=== PATIENT | female | born 1960 | race Caucasian/White ===

== ENCOUNTER 2016-07-08 06:20 | Inpatient (IN) | payer BC ==
[2016-07-08] VITALS (8 sets, daily range): BP systolic 90–157; BP diastolic 49–86
[~2016-07-08] VITALS: Ht 154.9 cm; Wt 44.5 kg
[~2016-07-08 06:20] MED LIST: AMOXICILLIN500 MG PO; ATIVAN0.5 MG PO; ATIVAN1 MG OR; BUSPAR10 MG PO; CIPRO250 MG OR; CIPROFLOXACN500 MG PO; CLONIDINE0.1 MG OR; CLONIDINE0.1 MG PO; CREON24000 UNT PO; DILAUDID2 MG OR; ENALAPRIL10 MG OR; FLUOXETINE20 M1 PO; K-TAB20 MEQ PO; KLOR-CON 1010 MEQ PO; KLOR-CON M2020 MEQ PO; LIBRIUM25 MG PO; LIPITOR40 MG PO; LISINOP/HCTZ1 TA1 PO; LISINOPRIL10 MG PO; LISINOPRIL20 MG PO; LORAZEPAM0.5 MG PO; LORTAB 1010 MG PO; LORTAB 5 OR; LORTAB 5/3255 MG PO; LORTAB 7.5 OR; LOVASTATIN40 M1 PO; MEDDOSEPAK OR; METOPROL TAR25 MG PO; METOPROL TAR50 MG PO; METRONIDAZOL500 MG PO; NAPROXEN250 MG PO; OMEPRAZOLE10 MG OR; ONDANSETRON HCL4 MG PO; PEPCID20 MG PO; PROCARDIA XL60 MG PO; PROTONIX40 MG OR; PROZAC10 MG PO; TOPROL XL100 MG OR; TORADOL PO; TRAZODONE50 MG PO; TRICOR48 MG PO; VANCOMYCIN750 MG IV; XANAX0.25 MG PO; ZOLOFT50 MG PO; [UNRECOGNIZED DRUG - REMARK] PO
[2016-07-08] MEDS ORDERED: ANASTROZOLE1 MG PO (06:46)
[2016-07-08 07:51] LABS: HEMOGLOBIN 10.9 g/dl (12.0-16.0); IMMATURE GRANULOCYTES 0.3 % (0.0-1.0); MEAN CELL VOLUME 99.4 fL CALC (80.0-100.0); MEAN CORPUSCULAR HGB 33.9 pG CALC (26.0-32.0); MEAN CORPUSCULAR HGB CONC 34.1 g/L CALC (32.0-36.0); NEUT# 4.25 thou/uL (2.00-7.15); RED BLOOD COUNT 3.22 mill/uL (4.20-5.60); RED CELL DISTRI WIDTH 14.1 % (11.5-15.5)
[2016-07-08 07:51] LABS: ALBUMIN 2.2 g/dL (3.2-5.0); ALKALINE PHOSPHATASE 52 u/l (38-126); ANION GAP 15 (6-22 (CALC)); BILIRUBIN, TOTAL 0.2 mg/dL (0.0-1.4); BUN 8 mg/dL (7-17); BUN/CREATININE RATIO 13 (12-20 (CALC)); CALCIUM 8.1 mg/dL (8.4-10.2); CARBON DIOXIDE 15 mmol/l (22-30); CHLORIDE 110 mmol/l (95-108); CREATININE 0.6 mg/dL (0.5-1.0); GFR > 60 ML/MIN (>=60 (CALC)); GFR FOR AFR.AMER. > 60 ML/MIN (>=60 (CALC)); GLUCOSE 71 mg/dL (65-105); POTASSIUM 4.1 mmol/l (3.5-5.1); SGOT/AST 11 u/l (14-36); SGPT/ALT 22 u/l (9-52); SODIUM 136 mmol/l (137-146); TOTAL PROTEIN 4.1 g/dL (6.3-8.2)
[2016-07-08 07:53] LABS: ACT PARTIAL THROMBO TIME 25.8 SECONDS (20.0-32.5); PROTHROMBIN TIME 10.8 SECONDS (9.0-12.5)
[2016-07-09] VITALS (8 sets, daily range): BP systolic 94–155; BP diastolic 55–85
[2016-07-09 06:10] LABS: HEMATOCRIT 27.5 % (37.0-47.0); HEMOGLOBIN 9.1 g/dl (12.0-16.0); IMMATURE GRANULOCYTES 0.2 % (0.0-1.0); MEAN CELL VOLUME 102.2 fL CALC (80.0-100.0); MEAN CORPUSCULAR HGB 33.8 pG CALC (26.0-32.0); MEAN CORPUSCULAR HGB CONC 33.1 g/L CALC (32.0-36.0); NEUT# 3.64 thou/uL (2.00-7.15); RED BLOOD COUNT 2.69 mill/uL (4.20-5.60); RED CELL DISTRI WIDTH 14.1 % (11.5-15.5)
[2016-07-09 06:28] LABS: ANION GAP 11 (6-22 (CALC)); BUN 10 mg/dL (7-17); BUN/CREATININE RATIO 10 (12-20 (CALC)); CALCIUM 8.2 mg/dL (8.4-10.2); CARBON DIOXIDE 21 mmol/l (22-30); CHLORIDE 109 mmol/l (95-108); GFR 58 ML/MIN (>=60 (CALC)); GFR FOR AFR.AMER. > 60 ML/MIN (>=60 (CALC)); GLUCOSE 77 mg/dL (65-105); POTASSIUM 4.2 mmol/l (3.5-5.1); SODIUM 136 mmol/l (137-146)
[2016-07-10] VITALS: BP 134/82
[2016-07-10 03:20] VITALS: BP 163/83
[2016-07-10 05:13] LABS: ANION GAP 11 (6-22 (CALC)); BUN 7 mg/dL (7-17); BUN/CREATININE RATIO 8 (12-20 (CALC)); CALCIUM 8.1 mg/dL (8.4-10.2); CARBON DIOXIDE 20 mmol/l (22-30); CHLORIDE 111 mmol/l (95-108); CREATININE 0.9 mg/dL (0.5-1.0); GFR > 60 ML/MIN (>=60 (CALC)); GFR FOR AFR.AMER. > 60 ML/MIN (>=60 (CALC)); GLUCOSE 78 mg/dL (65-105); POTASSIUM 3.7 mmol/l (3.5-5.1); SODIUM 139 mmol/l (137-146)
[2016-07-10 05:29] LABS: HEMOGLOBIN 8.9 g/dl (12.0-16.0); MEAN CELL VOLUME 99.2 fL CALC (80.0-100.0); MEAN CORPUSCULAR HGB CONC 34.2 g/L CALC (32.0-36.0); RED BLOOD COUNT 2.62 mill/uL (4.20-5.60); RED CELL DISTRI WIDTH 13.5 % (11.5-15.5)
[2016-07-10 16:54] VITALS: BP 149/81
[2016-07-10 19:30] VITALS: BP 187/83
[2016-07-10 21:15] VITALS: BP 152/89
[2016-07-10 23:45] VITALS: BP 150/85
[2016-07-11 04:56] VITALS: BP 130/62
[2016-07-11 05:49] LABS: HEMATOCRIT 25.6 % (37.0-47.0); HEMOGLOBIN 8.8 g/dl (12.0-16.0); IMMATURE GRANULOCYTES 0.3 % (0.0-1.0); MEAN CELL VOLUME 98.1 fL CALC (80.0-100.0); MEAN CORPUSCULAR HGB 33.7 pG CALC (26.0-32.0); MEAN CORPUSCULAR HGB CONC 34.4 g/L CALC (32.0-36.0); NEUT# 4.39 thou/uL (2.00-7.15); RED BLOOD COUNT 2.61 mill/uL (4.20-5.60); RED CELL DISTRI WIDTH 13.3 % (11.5-15.5)
[2016-07-11 06:08] LABS: ANION GAP 15 (6-22 (CALC)); BUN 6 mg/dL (7-17); BUN/CREATININE RATIO 7 (12-20 (CALC)); CALCIUM 8.2 mg/dL (8.4-10.2); CARBON DIOXIDE 18 mmol/l (22-30); CHLORIDE 111 mmol/l (95-108); CREATININE 0.8 mg/dL (0.5-1.0); GFR > 60 ML/MIN (>=60 (CALC)); GFR FOR AFR.AMER. > 60 ML/MIN (>=60 (CALC)); GLUCOSE 60 mg/dL (65-105); POTASSIUM 3.7 mmol/l (3.5-5.1); SODIUM 141 mmol/l (137-146)
[2016-07-11 08:04] VITALS: BP 144/74
[2016-07-11 16:14] VITALS: BP 113/67
[2016-07-11 16:21] VITALS: BP 146/78
[2016-07-11 20:24] VITALS: BP 158/84
[2016-07-12 00:27] VITALS: BP 152/73
[2016-07-12 04:40] VITALS: BP 131/72
[2016-07-12 05:50] LABS: HEMATOCRIT 24.1 % (37.0-47.0); HEMOGLOBIN 8.3 g/dl (12.0-16.0); IMMATURE GRANULOCYTES 0.2 % (0.0-1.0); MEAN CELL VOLUME 98.4 fL CALC (80.0-100.0); MEAN CORPUSCULAR HGB 33.9 pG CALC (26.0-32.0); MEAN CORPUSCULAR HGB CONC 34.4 g/L CALC (32.0-36.0); NEUT# 2.8 thou/uL (2.00-7.15); RED BLOOD COUNT 2.45 mill/uL (4.20-5.60); RED CELL DISTRI WIDTH 13.2 % (11.5-15.5)
[2016-07-12 06:09] LABS: ANION GAP 17 (6-22 (CALC)); BUN 5 mg/dL (7-17); BUN/CREATININE RATIO 7 (12-20 (CALC)); CALCIUM 8.3 mg/dL (8.4-10.2); CARBON DIOXIDE 17 mmol/l (22-30); CHLORIDE 111 mmol/l (95-108); CREATININE 0.8 mg/dL (0.5-1.0); GFR > 60 ML/MIN (>=60 (CALC)); GFR FOR AFR.AMER. > 60 ML/MIN (>=60 (CALC)); GLUCOSE 40 mg/dL (65-105); POTASSIUM 3.4 mmol/l (3.5-5.1); SODIUM 141 mmol/l (137-146)
[2016-07-12 09:09] VITALS: BP 176/88
[2016-07-12 16:25] VITALS: BP 179/92
[2016-07-12 18:54] VITALS: BP 162/94
[2016-07-12 23:22] VITALS: BP 144/79
[2016-07-13 05:05] LABS: HEMATOCRIT 26.6 % (37.0-47.0); HEMOGLOBIN 9.5 g/dl (12.0-16.0); IMMATURE GRANULOCYTES 0.2 % (0.0-1.0); MEAN CORPUSCULAR HGB 34.3 pG CALC (26.0-32.0); MEAN CORPUSCULAR HGB CONC 35.7 g/L CALC (32.0-36.0); NEUT# 2.19 thou/uL (2.00-7.15); RED BLOOD COUNT 2.77 mill/uL (4.20-5.60); RED CELL DISTRI WIDTH 13.1 % (11.5-15.5)
[2016-07-13 05:10] VITALS: BP 156/79; BP 98/61
[2016-07-13 05:36] LABS: ANION GAP 12 (6-22 (CALC)); BUN 5 mg/dL (7-17); BUN/CREATININE RATIO 7 (12-20 (CALC)); CALCIUM 8.8 mg/dL (8.4-10.2); CARBON DIOXIDE 25 mmol/l (22-30); CHLORIDE 109 mmol/l (95-108); CREATININE 0.8 mg/dL (0.5-1.0); GFR > 60 ML/MIN (>=60 (CALC)); GFR FOR AFR.AMER. > 60 ML/MIN (>=60 (CALC)); GLUCOSE 80 mg/dL (65-105); POTASSIUM 3.6 mmol/l (3.5-5.1); SODIUM 143 mmol/l (137-146)
[2016-07-13 07:40] VITALS: BP 200/93
[2016-07-13 15:16] VITALS: BP 175/96
[2016-07-13] MEDS ORDERED: LORTAB 10-325 M1 TAB PO (16:21)
[2016-07-13 20:34] VITALS: BP 153/85
[2016-07-14 04:35] VITALS: BP 145/88
[2016-07-14 09:19] VITALS: BP 96/52
[2016-07-14 12:08] VITALS: BP 98/60
[2016-07-14 15:05] VITALS: BP 117/70
[2016-07-14] MEDS ORDERED: COLACE100 MG PO (19:11)
[2016-07-14] MEDS ORDERED: MIRALAX3350 NF PO (19:11)
== END 2016-07-14 19:30 | disposition home or self-care (01) | DRG 330 ==
LOC: ENPENDDIS → ORM 06:20 → ICU 10:48 → MS2 07-09 13:45
PROVIDERS: Internal Medicine; ADMIT Surgery; ATTEND Surgery
PROC: 0DBF0ZZ Excision of Right Large Intestine, Open Approach (ICD-10-PCS; principal; 2016-07-08)
DX: C7A.02 Malignant carcinoid tumors of the appendix, large intestine, and rectum (principal); K86.1 Other chronic pancreatitis; I10 Essential (primary) hypertension; J44.9 Chronic obstructive pulmonary disease, unspecified; F41.9 Anxiety disorder, unspecified; G47.00 Insomnia, unspecified; F17.210 Nicotine dependence, cigarettes, uncomplicated; Z96.89 Presence of other specified functional implants; Z85.3 Personal history of malignant neoplasm of breast; Z90.13 Acquired absence of bilateral breasts and nipples
CPT/HCPCS: J2710

== ENCOUNTER 2016-08-28 19:27 | Emergency (ER) | payer BC ==
[~2016-08-28] VITALS: Ht 154.9 cm; Wt 38.0 kg
[~2016-08-28 19:27] MED LIST changes: +ANASTROZOLE1 MG PO; +COLACE100 MG PO; +LORTAB 10-325 M1 TAB PO; +MIRALAX3350 NF PO
[2016-08-28 20:19] LABS: HEMATOCRIT 37.3 % (37.0-47.0); HEMOGLOBIN 12.4 g/dl (12.0-16.0); IMMATURE GRANULOCYTES 0.3 % (0.0-1.0); MEAN CELL VOLUME 98.4 fL CALC (80.0-100.0); MEAN CORPUSCULAR HGB 32.7 pG CALC (26.0-32.0); MEAN CORPUSCULAR HGB CONC 33.2 g/L CALC (32.0-36.0); NEUT# 5.48 thou/uL (2.00-7.15); RED BLOOD COUNT 3.79 mill/uL (4.20-5.60); RED CELL DISTRI WIDTH 12.5 % (11.5-15.5)
[2016-08-28 20:51] LABS: ALBUMIN 4.2 g/dL (3.2-5.0); ALKALINE PHOSPHATASE 115 u/l (38-126); AMYLASE 300 u/l (30-110); ANION GAP 15 (6-22 (CALC)); BILIRUBIN, TOTAL 0.4 mg/dL (0.0-1.4); BUN 9 mg/dL (7-17); BUN/CREATININE RATIO 12 (12-20 (CALC)); CALCIUM 9.8 mg/dL (8.4-10.2); CARBON DIOXIDE 27 mmol/l (22-30); CHLORIDE 101 mmol/l (95-108); CREATININE 0.8 mg/dL (0.5-1.0); GFR > 60 ML/MIN (>=60 (CALC)); GFR FOR AFR.AMER. > 60 ML/MIN (>=60 (CALC)); GLUCOSE 97 mg/dL (65-105); LIPASE 1944 u/l (23-300); POTASSIUM 3.4 mmol/l (3.5-5.1); SGOT/AST 24 u/l (14-36); SGPT/ALT 20 u/l (9-52); SODIUM 139 mmol/l (137-146); TOTAL PROTEIN 8.3 g/dL (6.3-8.2)
[2016-08-28 21:03] LABS: MYOGLOBIN 27 ng/mL (0 - 62)
[2016-08-28 23:35] VITALS: BP 174/82
== END 2016-08-28 23:37 | disposition short-term general hospital (02) | DRG 440 ==
LOC: ED 19:27 → ED-I 21:00 → ED 23:37
PROVIDERS: Emergency Medicine
DX: K85.90 Acute pancreatitis without necrosis or infection, unspecified (principal); I10 Essential (primary) hypertension; E78.00 Pure hypercholesterolemia, unspecified; F41.9 Anxiety disorder, unspecified; F17.210 Nicotine dependence, cigarettes, uncomplicated; Z85.3 Personal history of malignant neoplasm of breast; Z85.038 Personal history of other malignant neoplasm of large intestine; Z98.890 Other specified postprocedural states

== ENCOUNTER 2016-10-06 19:05 | Emergency (ER) | payer BC ==
[~2016-10-06] VITALS: Ht 154.9 cm; Wt 39.6 kg
[2016-10-06 20:00] VITALS: BP 189/94
== END 2016-10-06 20:08 | disposition home or self-care (01) | DRG 440 ==
LOC: ED 19:05
DX: K86.1 Other chronic pancreatitis (principal); I10 Essential (primary) hypertension; E78.00 Pure hypercholesterolemia, unspecified; F41.9 Anxiety disorder, unspecified; F17.210 Nicotine dependence, cigarettes, uncomplicated; F10.21 Alcohol dependence, in remission; Z85.3 Personal history of malignant neoplasm of breast; Z85.038 Personal history of other malignant neoplasm of large intestine

== ENCOUNTER 2017-03-20 12:03 | Emergency (ER) | payer BC ==
[~2017-03-20] VITALS: Ht 154.9 cm; Wt 43.0 kg
[2017-03-20 13:49] LABS: HEMATOCRIT 41.3 % (37.0-47.0); HEMOGLOBIN 14.4 g/dl (12.0-16.0); IMMATURE GRANULOCYTES 0.2 % (0.0-1.0); MEAN CELL VOLUME 91.4 fL CALC (80.0-100.0); MEAN CORPUSCULAR HGB 31.9 pG CALC (26.0-32.0); MEAN CORPUSCULAR HGB CONC 34.9 g/L CALC (32.0-36.0); NEUT# 7.32 thou/uL (2.00-7.15); RED BLOOD COUNT 4.52 mill/uL (4.20-5.60); RED CELL DISTRI WIDTH 12.5 % (11.5-15.5)
[2017-03-20 14:00] LABS: ALBUMIN 4.5 g/dL (3.2-5.0); ALKALINE PHOSPHATASE 152 u/l (38-126); ANION GAP 18 (6-22 (CALC)); BILIRUBIN, TOTAL 0.7 mg/dL (0.0-1.4); BUN 10 mg/dL (7-17); BUN/CREATININE RATIO 13 (12-20 (CALC)); CALCIUM 10.1 mg/dL (8.4-10.2); CARBON DIOXIDE 23 mmol/l (22-30); CHLORIDE 105 mmol/l (95-108); CREATININE 0.8 mg/dL (0.5-1.0); GFR > 60 ML/MIN (>=60 (CALC)); GFR FOR AFR.AMER. > 60 ML/MIN (>=60 (CALC)); GLUCOSE 119 mg/dL (65-105); LIPASE 503 u/l (23-300); POTASSIUM 3.9 mmol/l (3.5-5.1); SGOT/AST 21 u/l (14-36); SGPT/ALT 31 u/l (9-52); SODIUM 142 mmol/l (137-146); TOTAL PROTEIN 7.4 g/dL (6.3-8.2)
[2017-03-20 15:46] LABS: URINE BILIRUBIN - DIPSTICK NEGATIVE (NEGATIVE); URINE BLOOD DIPSTICK TRACE-LYSED (NEGATIVE); URINE COLOR YELLOW; URINE GLUCOSE - DIPSTICK NEGATIVE (NEGATIVE); URINE KETONE 15 mg/dL (NEGATIVE); URINE LEUK ESTERASE NEGATIVE (NEGATIVE); URINE NITRITE - DIPSTICK NEGATIVE (Negative); URINE PROTEIN - DIPSTICK TRACE mg/dL (NEG-TRACE); URINE UROBILINOGEN - DIPSTICK 0.2 E.U./dL (0.2)
[2017-03-20 15:47] LABS: URINE CLARITY CLEAR
[2017-03-20] MEDS ORDERED: ZOFRAN4 M1 PO (19:05)
[2017-03-20 19:25] VITALS: BP 187/91
== END 2017-03-20 19:25 | disposition home or self-care (01) | DRG 392 ==
LOC: ED 12:03
PROVIDERS: Family Medicine
DX: R10.13 Epigastric pain (principal); E78.00 Pure hypercholesterolemia, unspecified; R11.2 Nausea with vomiting, unspecified; I10 Essential (primary) hypertension; F41.9 Anxiety disorder, unspecified; F17.210 Nicotine dependence, cigarettes, uncomplicated; Z85.038 Personal history of other malignant neoplasm of large intestine; Z85.3 Personal history of malignant neoplasm of breast; Z96.89 Presence of other specified functional implants

== ENCOUNTER 2017-04-12 11:25 | Emergency (ER) | payer BC ==
[~2017-04-12] VITALS: Ht 154.9 cm; Wt 45.0 kg
[~2017-04-12 11:25] MED LIST changes: +ZOFRAN4 M1 PO
[2017-04-12 12:14] LABS: HEMATOCRIT 35.6 % (37.0-47.0); HEMOGLOBIN 12.8 g/dl (12.0-16.0); IMMATURE GRANULOCYTES 0.4 % (0.0-1.0); MEAN CELL VOLUME 88.1 fL CALC (80.0-100.0); MEAN CORPUSCULAR HGB 31.7 pG CALC (26.0-32.0); NEUT# 8.41 thou/uL (2.00-7.15); RED BLOOD COUNT 4.04 mill/uL (4.20-5.60); RED CELL DISTRI WIDTH 12.7 % (11.5-15.5)
[2017-04-12 13:37] LABS: ALBUMIN 3.1 g/dL (3.2-5.0); ALKALINE PHOSPHATASE 81 u/l (38-126); AMYLASE 138 u/l (30-110); BILIRUBIN, TOTAL 0.7 mg/dL (0.0-1.4); CALCIUM 6.7 mg/dL (8.4-10.2); CHLORIDE 81 mmol/l (95-108); GLUCOSE 137 mg/dL (65-105); LIPASE 403 u/l (23-300); SGOT/AST 19 u/l (14-36); SGPT/ALT 24 u/l (9-52); SODIUM 134 mmol/l (137-146); TOTAL PROTEIN 5.7 g/dL (6.3-8.2)
[2017-04-12 13:46] LABS: ANION GAP 53 (6-22 (CALC)); CARBON DIOXIDE 7 mmol/l (22-30); POTASSIUM 7.2 mmol/l (3.5-5.1)
[2017-04-12 14:17] LABS: MAGNESIUM 2.3 mg/dL (1.6-2.3)
[2017-04-12 14:18] LABS: MYOGLOBIN 1431 ng/mL (0 - 62)
[2017-04-12] MEDS ORDERED: MINOCIN100 MG PO (14:36)
[2017-04-12] MEDS ORDERED: OXYCODONE HCL15 MG PO (14:38)
[2017-04-12] MEDS ORDERED: MORPHINE SUL30 M3 PO (14:39)
[2017-04-12 14:41] LABS: URINE BILIRUBIN - DIPSTICK NEGATIVE (NEGATIVE); URINE BLOOD DIPSTICK MODERATE (NEGATIVE); URINE COLOR YELLOW; URINE GLUCOSE - DIPSTICK NEGATIVE (NEGATIVE); URINE KETONE NEGATIVE (NEGATIVE); URINE LEUK ESTERASE NEGATIVE (NEGATIVE); URINE NITRITE - DIPSTICK NEGATIVE (Negative); URINE PROTEIN - DIPSTICK NEGATIVE (NEG-TRACE); URINE SPECIFIC GRAVITY 1.025; URINE UROBILINOGEN - DIPSTICK 0.2 E.U./dL (0.2)
[2017-04-12 14:43] LABS: URINE CLARITY SL CLOUDY
[2017-04-12 14:50] LABS: URINE AMORPH SEDIMENT MANY hpf (NONE-FEW); URINE SQUAMOUS EPITHELIAL CELL FEW EPI/hpf (0-FEW); URINE WBC 0-2 WBC/hpf (0-5)
[2017-04-12 16:20] VITALS: BP 113/60
== END 2017-04-12 15:50 | DRG 684 ==
LOC: ED 11:25
PROVIDERS: Emergency Medicine
PROC: 0T9B70Z Drainage of Bladder with Drainage Device, Via Natural or Artificial Opening (ICD-10-PCS; principal; 2017-04-12)
DX: N17.9 Acute kidney failure, unspecified (principal); E83.51 Hypocalcemia; E87.5 Hyperkalemia; E78.00 Pure hypercholesterolemia, unspecified; I10 Essential (primary) hypertension; F41.9 Anxiety disorder, unspecified; F17.210 Nicotine dependence, cigarettes, uncomplicated; Z90.13 Acquired absence of bilateral breasts and nipples; Z85.038 Personal history of other malignant neoplasm of large intestine; Z85.3 Personal history of malignant neoplasm of breast; Z92.21 Personal history of antineoplastic chemotherapy

== ENCOUNTER 2017-05-09 12:39 | Observation (INO) | payer BC ==
[~2017-05-09] VITALS: Ht 154.9 cm; Wt 45.0 kg
[~2017-05-09 12:39] MED LIST changes: +MINOCIN100 MG PO; +MORPHINE SUL30 M3 PO; +OXYCODONE HCL15 MG PO
--- NOTE | 2017-05-09 12:51 | NUR ---
PT TO ROOM FOR EXAM
[2017-05-09 13:23] LABS: HEMATOCRIT 30.4 % (37.0-47.0); HEMOGLOBIN 9.8 g/dl (12.0-16.0); IMMATURE GRANULOCYTES 0.7 % (0.0-1.0); MEAN CORPUSCULAR HGB 32.6 pG CALC (26.0-32.0); MEAN CORPUSCULAR HGB CONC 32.2 g/L CALC (32.0-36.0); NEUT# 6.64 thou/uL (2.00-7.15); RED BLOOD COUNT 3.01 mill/uL (4.20-5.60); RED CELL DISTRI WIDTH 17.1 % (11.5-15.5)
--- NOTE | 2017-05-09 13:35 | NUR ---
PT NOW WITH IV ESTABLISHED, BLOOD DRAWN, MEDS PROVIDED ORDERED. PT RESTS IN THE STRETCHER, LIGHTS DIMMED, AT BEDSIDE.
[2017-05-09 13:36] LABS: ALBUMIN 3.8 g/dL (3.2-5.0); ALKALINE PHOSPHATASE 144 u/l (38-126); AMYLASE 102 u/l (30-110); ANION GAP 18 (6-22 (CALC)); BILIRUBIN, TOTAL 0.3 mg/dL (0.0-1.4); BUN 6 mg/dL (7-17); BUN/CREATININE RATIO 6 (12-20 (CALC)); CALCIUM 9.9 mg/dL (8.4-10.2); CARBON DIOXIDE 20 mmol/l (22-30); CHLORIDE 111 mmol/l (95-108); CREATININE 1.1 mg/dL (0.5-1.0); GFR 52 ML/MIN (>=60 (CALC)); GFR FOR AFR.AMER. > 60 ML/MIN (>=60 (CALC)); GLUCOSE 123 mg/dL (65-105); LIPASE 329 u/l (23-300); POTASSIUM 3.5 mmol/l (3.5-5.1); SGOT/AST 22 u/l (14-36); SGPT/ALT 17 u/l (9-52); SODIUM 146 mmol/l (137-146); TOTAL PROTEIN 6.5 g/dL (6.3-8.2)
[2017-05-09] MEDS ORDERED: IMODIUM2 MG PO (13:56)
[2017-05-09] MEDS ORDERED: ZOFRAN ODT4 MG PO (13:56)
--- NOTE | 2017-05-09 14:00 | NUR ---
PT WITH ACTIVE VOMITING IN ROOM, EDP AWARE, DIFFERENT MED ORDERED.
--- NOTE | 2017-05-09 14:25 | NUR ---
PT STILL VOMITING, EDP AWARE.
--- NOTE | 2017-05-09 15:38 | NUR ---
PT AMBULATORY TO BR, UNABLE TO PROVIDE URINE PER DROPPED CUP.
[2017-05-09] MEDS ORDERED: AMLODIPINE BESYL5 MG PO (16:34)
[2017-05-09] MEDS ORDERED: CREON24000 UNT PO (16:35)
[2017-05-09] MEDS ORDERED: DRONABINOL5 MG PO (16:36)
[2017-05-09] MEDS ORDERED: K-DUR/KLOR-CON20 MEQ PO (16:37)
--- NOTE | 2017-05-09 16:44 | NUR ---
PT ARRIVED FROM ER VIA STRETCHER ACCOMPANIED BY STAFF. IV SITE IS FREE FROM REDNESS OR EDEMA. CONTINUE TO OBSERVE AND MONITOR.
--- NOTE | 2017-05-09 16:50 | NUR ---
PT TAKEN TO ROOM 262 WITHOUT INCIDENT, REPORT WAS TO GILBERT SINCLAIR.
[2017-05-09 17:00] VITALS: BP 192/105
--- NOTE | 2017-05-09 17:15 | NUR ---
ASSESSMENT IS COMPLETED: IV SITE IS FREE FROM REDNESS OR EDEMA. INQUIRED ABOUT PAIN MEDICATION. CALLED MELISSA ADAMS RE: BP DUE TO BEING HIGH. NEW ORDERS GIVEN. LAB ORDERS GIVEN . CONTINUE TO OSBERVE AND MONITOR.
[2017-05-09 18:08] VITALS: BP 187/106
--- NOTE | 2017-05-09 18:16 | NUR ---
MEDICATED WITH HYDRALAZINE 10MG IVP FOR BP 187/106. WILL CONTINUE TO MONITOR.
[2017-05-09 18:52] VITALS: BP 155/82
--- NOTE | 2017-05-09 18:53 | NUR ---
BP RECHECKED AFTER APRESOLINE WAS GIVEN NOW 155/82
[2017-05-09 19:12] LABS: URINE BILIRUBIN - DIPSTICK NEGATIVE (NEGATIVE); URINE BLOOD DIPSTICK TRACE-INTACT (NEGATIVE); URINE COLOR YELLOW; URINE GLUCOSE - DIPSTICK NEGATIVE (NEGATIVE); URINE KETONE NEGATIVE (NEGATIVE); URINE LEUK ESTERASE NEGATIVE (NEGATIVE); URINE NITRITE - DIPSTICK NEGATIVE (Negative); URINE PH 6.5 (4.5-8.0); URINE PROTEIN - DIPSTICK NEGATIVE (NEG-TRACE); URINE UROBILINOGEN - DIPSTICK 0.2 E.U./dL (0.2)
[2017-05-09 19:24] LABS: URINE CLARITY CLEAR
[2017-05-09 19:49] VITALS: BP 155/82
--- NOTE | 2017-05-09 21:20 | NUR ---
PT RESTING IN SEMI FOWLERS POSITION;PT COMPLAINS OF ABDOMINAL PAIN RATING 6/10 ON THE PAIN SCALE AND REQUESTS PAIN MEDICATION;PT EDUCATED ON PAIN MEDICATION SCHEDULE AND VERBALIZES UNDERSTANDING;PT ALSO RE-EDUCATED ON NPO DIET STATUS;ASSESSMENT COMPLETED;#20G TO RIGHT FOREARM INFUSING NS @100ML/HR WELL,SITE APPEARS HEALTHY;RESPIRATIONS EVEN AND UNLABORED ON RA;ABDOMEN TENDER IN ALL 4 QUADS WITH HYPOACTIVE BOWEL SOUNDS;SKIN INTACT;LIMB ALERT BAND PLACED ON LEFT ARM;PT CURRENTLY DENIES ANY NAUSEA OR NEEDS;SAFETY PRECAUTIONS REINFORCED;PT EDUCATED TO CALL FOR ASSISTANCE IF NEEDED;CALL LIGHT IN REACH;WILL CONTINUE TO MONITOR
--- NOTE | 2017-05-09 22:45 | NUR ---
PT LAYING IN BED COMPLAINING OF ABDOMINAL PAIN RATING 6/10 ON THE PAIN SCALE AND REQUESTING PAIN AND NAUSEA MEDICATION;PT MEDICATED WITH DILAUDID 1MG AND ZOFRAN 4MG IVP;PT DENIES ANY OTHER NEEDS;WILL CONTINUE TO MONITOR FOR EFFECTIVENESS
--- NOTE | 2017-05-10 00:35 | NUR ---
PT APPEARS TO BE SLEEPING IN SEMI FOWLERS;NO S/S OF DISTRESS NOTED;RESPIRATIONS EVEN AND UNLABORED ON RA;IV FLUIDS INFUSING WELL TO RIGHT FORARM WELL;CALL LIGHT IN REACH;WILL CONTINUE TO MONITOR
--- NOTE | 2017-05-10 03:10 | NUR ---
PT RESTING IN BED COMPLAINING OF ABDOMINAL PAIN RATING 5/10 ON THE PAIN SCALE AND REQUESTS PAIN MEDICATION;PT MEDICATED WITH PRN DILAUDID 1MG IVP;PT REPORTS FEELING BETTER AND NOT EXPERIENCING ANY NAUSEA;IV FLUIDS CONTINUE TO INFUSE WELL TO RIGHT FOREARM;9OOCC OF CLEAR/YELLOW URINE EMPTIED FROM COMMODE,SPECIMEN SENT TO LAB;PT DENIES ANY OTHER NEEDS AT THIS TIME;WILL CONTINUE TO MONITOR
[2017-05-10 04:43] VITALS: BP 131/78
--- NOTE | 2017-05-10 07:25 | NUR ---
BEDSIDE REPORT RECEIVED FROM DOTTIE DUTTON. PT SITTING UPRIGHT IN BED. DENIES PAIN, RELIEF FROM RECENT MEDICATION. REPORTING OF CONCERNS ENCOURAGED. DENIES NAUSEA. NEED OF STOOL SAMPLE DISCUSSED. PLAN OF CARE REVIEWED. NPO STATUS REINFORCED. CALL LIGHT REVIEWED AND IN REACH. PT STATES UNDERSTANDING.
[2017-05-10 07:35] VITALS: BP 124/69
--- NOTE | 2017-05-10 07:45 | NUR ---
PT ASSESSMENT COMPLETED. PT ALERT, ORIENTED X3. SPEECH IS CLEAR. SYMMETRICAL PUPILS, EQUAL, REACTIVE TO LIGHT. PT HAS STRONG UPPER AND LOWER EXTREMITIES. PT HAS STRONG APICAL, RADIAL, AND PEDAL PULSES. BRISK CAPILLARY REFILL. SKIN IS WARM, DRY AND INTACT. LUNGS SOUNDS CLEAR AND RESPIRATION EVEN AND UNLABORED. PT HAS #20 GUAUGE IV SITE, WITHOUT SWELLING OR REDNESS. PT HAS NO PAIN, NO NAUSAE. PT IS AWARE OF NPO STATUE. CALL LIGHT WITHIN REACH, BED IN THE LOWEST POSITION, SIDE RAIL UP. WILL CONTINUE TO MONITOR.
[2017-05-10 08:26] VITALS: BP 124/69
[2017-05-10 08:45] LABS: HEMATOCRIT 27.4 % (37.0-47.0); HEMOGLOBIN 8.8 g/dl (12.0-16.0); IMMATURE GRANULOCYTES 0.2 % (0.0-1.0); MEAN CELL VOLUME 102.6 fL CALC (80.0-100.0); MEAN CORPUSCULAR HGB CONC 32.1 g/L CALC (32.0-36.0); NEUT# 5.8 thou/uL (2.00-7.15); RED BLOOD COUNT 2.67 mill/uL (4.20-5.60); RED CELL DISTRI WIDTH 17.2 % (11.5-15.5)
[2017-05-10 09:02] LABS: ANION GAP 12 (6-22 (CALC)); BUN 7 mg/dL (7-17); BUN/CREATININE RATIO 7 (12-20 (CALC)); CARBON DIOXIDE 23 mmol/l (22-30); CHLORIDE 113 mmol/l (95-108); GFR 58 ML/MIN (>=60 (CALC)); GFR FOR AFR.AMER. > 60 ML/MIN (>=60 (CALC)); GLUCOSE 95 mg/dL (65-105); MAGNESIUM 1.4 mg/dL (1.6-2.3); POTASSIUM 3.3 mmol/l (3.5-5.1); SODIUM 144 mmol/l (137-146)
[2017-05-10 09:03] LABS: CALCIUM 8.8 mg/dL (8.4-10.2)
--- NOTE | 2017-05-10 09:43 | NUR ---
BRYAN TORRES IN TO SEE PT AT THIS TIME. PLAN OF CARE UPDATED, DIET ADVANCED TO CLEAR LIQUIDS. PT PROVIDED WITH WATER AND POPSICLES. WILL MONITOR FOR TOLERATION OF DIET.
[2017-05-10] MEDS ORDERED: ZOFRAN ODT4 MG PO (12:41)
--- NOTE | 2017-05-10 14:22 | NUR ---
Visited pt room for discharge med rec. Pt said she is doing good today. Reviewed updated order of zofran for pt, advised that schedule has changed from q6h to q4h PRN. Pt said she is familiar with the medication since has taken it in the past and declined medication review. Did not have any questions or concerns regarding other meds or therapy.
--- NOTE | 2017-05-10 14:41 | NUR ---
Discharge instructions given. Patient verbalizes understanding of same. Discharged in stable condition via Wheelchair to Home with spouse. All belongings sent with pt.
== END 2017-05-10 14:41 | disposition home or self-care (01) | DRG 392 ==
LOC: ED 12:39 → ED-I 15:58 → ED 16:02 → MS2 16:03
PROVIDERS: Emergency Medicine; Nurse Practitioner Family; ADMIT Internal Medicine; ATTEND Internal Medicine
DX: R11.2 Nausea with vomiting, unspecified (principal); E83.42 Hypomagnesemia; K86.1 Other chronic pancreatitis; F17.210 Nicotine dependence, cigarettes, uncomplicated; F32.9 Major depressive disorder, single episode, unspecified; F41.9 Anxiety disorder, unspecified; J44.9 Chronic obstructive pulmonary disease, unspecified; I16.0 Hypertensive urgency; I10 Essential (primary) hypertension; D64.9 Anemia, unspecified; E87.6 Hypokalemia; Z92.21 Personal history of antineoplastic chemotherapy; Z96.89 Presence of other specified functional implants; Z87.11 Personal history of peptic ulcer disease; Z85.038 Personal history of other malignant neoplasm of large intestine; Z85.3 Personal history of malignant neoplasm of breast
CPT/HCPCS: G0378; S0164

== ENCOUNTER 2017-06-23 09:00 | Day surgery (SDC) | payer BC ==
[~2017-06-23] VITALS: Ht 154.9 cm; Wt 39.5 kg
[~2017-06-23 09:00] MED LIST changes: +AMLODIPINE BESYL5 MG PO; +DRONABINOL5 MG PO; +IMODIUM2 MG PO; +K-DUR/KLOR-CON20 MEQ PO; +MECLIZINE25 MG PO; +PAXIL PO; +ZOFRAN ODT4 MG PO; +[UNRECOGNIZED DRUG - OTHER] IM
[2017-06-23 11:43] VITALS: BP 178/90
== END 2017-06-23 11:25 | disposition home or self-care (01) | DRG 378 ==
LOC: ENDO 09:00 → ORM 11:00 → ENDO 11:00
PROVIDERS: ATTEND Surgery
PROC: 0DBM8ZX Excision of Descending Colon, Via Natural or Artificial Opening Endoscopic, Diagnostic (ICD-10-PCS; principal; 2017-06-23)
DX: K57.31 Diverticulosis of large intestine without perforation or abscess with bleeding (principal); K63.5 Polyp of colon; K86.1 Other chronic pancreatitis; I10 Essential (primary) hypertension; E78.00 Pure hypercholesterolemia, unspecified; F17.210 Nicotine dependence, cigarettes, uncomplicated; Z90.49 Acquired absence of other specified parts of digestive tract; Z85.038 Personal history of other malignant neoplasm of large intestine

== ENCOUNTER 2018-08-30 00:44 | Emergency (ER) | payer BC ==
[~2018-08-30] VITALS: Ht 154.9 cm; Wt 39.6 kg
[2018-08-30 02:14] LABS: IMMATURE GRANULOCYTES 0.3 % (0.0-5.0); MEAN CORPUSCULAR HGB 32.9 pG CALC (26.0-32.0); MEAN CORPUSCULAR HGB CONC 34.8 g/L CALC (32.0-36.0); NEUT# 8.47 thou/uL (2.00-7.15); RED BLOOD COUNT 4.23 mill/uL (4.20-5.60); RED CELL DISTRI WIDTH 12.5 % (11.5-15.5); URINE BILIRUBIN - DIPSTICK NEGATIVE (NEGATIVE); URINE BLOOD DIPSTICK SMALL (NEGATIVE); URINE COLOR YELLOW; URINE GLUCOSE - DIPSTICK NEGATIVE (NEGATIVE); URINE KETONE 15 mg/dL (NEGATIVE); URINE LEUK ESTERASE NEGATIVE (NEGATIVE); URINE NITRITE - DIPSTICK NEGATIVE (Negative); URINE PROTEIN - DIPSTICK TRACE mg/dL (NEG-TRACE); URINE SPECIFIC GRAVITY 1.015; URINE UROBILINOGEN - DIPSTICK 0.2 E.U./dL (0.2)
[2018-08-30 02:18] LABS: HEMOGLOBIN 13.9 g/dl (12.0-16.0); MEAN CELL VOLUME 94.6 fL CALC (80.0-100.0)
[2018-08-30 02:26] LABS: URINE RBC 0-2 RBC/hpf (0-5); URINE SQUAMOUS EPITHELIAL CELL FEW EPI/hpf (0-FEW); URINE WBC 0-2 WBC/hpf (0-5)
[2018-08-30 02:31] LABS: ALKALINE PHOSPHATASE 83 u/l (38-126); AMYLASE 156 u/l (30-110); ANION GAP 14 (6-22 (CALC)); BUN 11 mg/dL (7-17); BUN/CREATININE RATIO 16 (12-20 (CALC)); CARBON DIOXIDE 25 mmol/l (22-30); CHLORIDE 104 mmol/l (95-108); CREATININE 0.7 mg/dL (0.5-1.0); ETHYL ALCOHOL 0 mg/dl (0-30); GFR > 60 ML/MIN (>=60 (CALC)); GFR FOR AFR.AMER. > 60 ML/MIN (>=60 (CALC)); LIPASE 491 u/l (23-300); POTASSIUM 3.1 mmol/l (3.5-5.1); SGOT/AST 23 u/l (14-36); SODIUM 140 mmol/l (137-146)
[2018-08-30 02:32] LABS: ALBUMIN 4.6 g/dL (3.2-5.0)
[2018-08-30 02:41] LABS: MYOGLOBIN 33 ng/mL (0 - 62)
[2018-08-30] MEDS ORDERED: ZOFRAN ODT4 MG PO (04:16)
[2018-08-30] MEDS ORDERED: ULTRAM50 M1 PO (04:16)
[2018-08-30] MEDS ORDERED: PREVACID30 M3 PO (04:16)
[2018-08-30 04:24] VITALS: BP 154/99
== END 2018-08-30 04:30 | disposition home or self-care (01) | DRG 392 ==
LOC: ED 00:44
PROVIDERS: Emergency Medicine
DX: R10.13 Epigastric pain (principal); E87.6 Hypokalemia; I10 Essential (primary) hypertension; F17.210 Nicotine dependence, cigarettes, uncomplicated
CPT/HCPCS: S0164

== ENCOUNTER 2019-05-03 23:01 | Inpatient (IN) | payer BC ==
[~2019-05-03] VITALS: Ht 154.9 cm; Wt 49.6 kg
[~2019-05-03 23:01] MED LIST changes: +PREVACID30 M3 PO; +ULTRAM50 M1 PO
--- NOTE | 2019-05-03 23:18 | NUR ---
PATIENT AMBULATORY TO ROOM 3 FOR BEDSIDE TRIAGE. AWAITING MD DAWSON.
--- NOTE | 2019-05-04 | NUR ---
BEDRESTING. ASKING FOR PAIN MEDICATION- EXPLAINED MD MUST EVAL AND ORDER PRIOR TO MEDICATION BEING GIVEN. MEANWHILE MED REC COMPLETED AND PT AMDE COMFORTABLE POSSIBLE
[2019-05-04 00:32] LABS: HEMATOCRIT 42.7 % (37.0-47.0); HEMOGLOBIN 14.8 g/dl (12.0-16.0); IMMATURE GRANULOCYTES 0.3 % (0.0-5.0); MEAN CELL VOLUME 93.6 fL CALC (80.0-100.0); MEAN CORPUSCULAR HGB 32.5 pG CALC (26.0-32.0); MEAN CORPUSCULAR HGB CONC 34.7 g/L CALC (32.0-36.0); NEUT# 11.63 thou/uL (2.00-7.15); RED BLOOD COUNT 4.56 mill/uL (4.20-5.60); RED CELL DISTRI WIDTH 12.4 % (11.5-15.5)
[2019-05-04 00:48] LABS: ALBUMIN 4.6 g/dL (3.2-5.0); ALKALINE PHOSPHATASE 79 u/l (38-126); ANION GAP 13 (6-22 (CALC)); BUN 13 mg/dL (7-17); BUN/CREATININE RATIO 14 (12-20 (CALC)); CARBON DIOXIDE 27 mmol/l (22-30); CHLORIDE 103 mmol/l (95-108); CREATININE 0.9 mg/dL (0.5-1.0); ETHYL ALCOHOL 0 mg/dl (0-30); GFR > 60 ML/MIN (>=60 (CALC)); GFR FOR AFR.AMER. > 60 ML/MIN (>=60 (CALC)); POTASSIUM 3.1 mmol/l (3.5-5.1); SGOT/AST 24 u/l (14-36); SODIUM 140 mmol/l (137-146); TOTAL PROTEIN 7.7 g/dL (6.3-8.2)
--- NOTE | 2019-05-04 00:54 | NUR ---
BEDRESTING. FLUIDS INFUSING RX- STATES PAIN MEDICATION HAS NOT DONE A THING,YET
[2019-05-04 00:55] LABS: BILIRUBIN, TOTAL 0.5 mg/dL (0.0-1.4)
[2019-05-04 00:56] LABS: AMYLASE > 2400 u/l (30-110); LIPASE > 20000 u/l (23-300)
[2019-05-04 00:58] LABS: MYOGLOBIN 36 ng/mL (0 - 62)
[2019-05-04 01:26] LABS: URINE BILIRUBIN - DIPSTICK NEGATIVE (NEGATIVE); URINE BLOOD DIPSTICK NEGATIVE (NEGATIVE); URINE COLOR YELLOW; URINE GLUCOSE - DIPSTICK NEGATIVE (NEGATIVE); URINE KETONE NEGATIVE (NEGATIVE); URINE LEUK ESTERASE NEGATIVE (NEGATIVE); URINE NITRITE - DIPSTICK NEGATIVE (Negative); URINE PH 5.5 (4.5-8.0); URINE PROTEIN - DIPSTICK NEGATIVE (NEG-TRACE); URINE SPECIFIC GRAVITY 1.015; URINE UROBILINOGEN - DIPSTICK 0.2 E.U./dL (0.2)
--- NOTE | 2019-05-04 01:30 | NUR ---
DRANK 2 CUPS OF ICE WATER-TOLERATED WELL
[2019-05-04 01:49] LABS: BARBITURATES NEGATIVE (NEGATIVE); COCAINE NEGATIVE (NEGATIVE); METHADONE NEGATIVE (NEGATIVE); OXCYCODONE POSITIVE (NEGATIVE); TETRAHYDROCANNABIONOL NEGATIVE (NEGATIVE); TRICYLIC ANTIDEPRESSANTS NEGATIVE (NEGATIVE)
--- NOTE | 2019-05-04 01:56 | NUR ---
ANOTHER DOSE OF DILAUDID GIVEN PT CONTINUES TO HAVE PAIN
--- NOTE | 2019-05-04 02:00 | NUR ---
PT AGREES TO ADMISSION. GOING HOME AT THIS TIME. HE AGREED TO BRING PATIENT'S ROUTINE MEDICATION BACK WITH HIM IN THE MORNING SOME OF THE MEDICATION MAY NOT BE AVAILABLE AT [facility]
--- NOTE | 2019-05-04 02:37 | NUR ---
SUSANR PRINTED TO FLOOR
--- NOTE | 2019-05-04 03:05 | NUR ---
REPORT CALLED TO STEVEN LOPEZ
--- NOTE | 2019-05-04 03:10 | NUR ---
TO MS VIA W/C
[2019-05-04 03:20] VITALS: BP 134/75
--- NOTE | 2019-05-04 03:30 | NUR ---
PT ARRIVED TO THE MED SURG UNIT VIA WC ACCOMPANIED BY ED NURSE. PT APPEARS TO BE IN STABLE CONDITION. SELF AMBULATED TO RESTROOM AND TO THE BED. IVF BOLUS RUNNING TO SITE IN THE RAC/SITE APPEARS HEALTHY AT THIS TIME. V/S OBTAINED AND PT ORIENTED TO ROOM, CALL SYSTEM, BED, LIGHTS AND TV. CLEAR FLUIDS PROVIDED AT THIS TIME.
--- NOTE | 2019-05-04 03:51 | NUR ---
PT ASSESSMENT COMPLETED AT THIS TIME. AND IVF REPLENISHED AND RUNNING TO IV TO LAC/SITE APPEARS HEALTHY. PT DENIES ANY OTHER NEEDS AT THIS TIME AND APPEARS TO BE RESTING COMFORABLY AT THIS TIME. CALL LIGHT IN HAND, LIGHTS OFF AND TV ON.
--- NOTE | 2019-05-04 05:31 | NUR ---
PT MEDICATED FOR PAIN 9/10 ON PAIN SCALE. DENIES ANY OTHER NEEDS AT THIS TIME. IVF RUNNING TO 20 TO RAC.
--- NOTE | 2019-05-04 07:20 | NUR ---
PATIENT RESTING IN BED AT THIS TIME-STATES ABD PAIN 10/10 ON PAIN SCALE AND ALSO FEELING NAUSEATED. PATIENT MEDICATED WITH ROXICODONE 15MG PO FOR ABD PAIN AND WITH ZOFRAN 4MG IVP FOR NAUSEA. IVF PATENT AND INFUSING VIA RAC SITE ORDERED. PATIENT STATES THAT SHE HAS HX OF CHRONIC PANCREATITIS. CLEAR FLUIDS BEING TAKEN IN SIPS ONLY. SAFETY PRECAUTIONS REINFORCED. CALL LIGHT IN REACH. WILL CONT TO MONITOR.
[2019-05-04 09:46] LABS: CHOLESTEROL HDL RATIO 2.9 (<4.4 (CALC)); MAGNESIUM 1.7 mg/dL (1.6-2.3)
--- NOTE | 2019-05-04 10:20 | NUR ---
PATIENT RESTING IN BED-C/O ABD AND BACK PAIN-MEDICATED WITH DILAUDID 1MG IVP FOR PAIN-11/09. IV SITE TO LEFT AC IS INTACT WITH IVF NS PATENT AND INFUSING ORDERED. SITE REMAINS HEALTHY AT THIS TIME. 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 PATIENT IS TAKING ONLY SIPS OF PO FLUIDS AT THIS TIME. SAFETY PRECAUTIONS REINFORCED. CALL LIGHT IN REACH. WILL CONT TO MONITOR.
[2019-05-04 11:05] VITALS: BP 151/89
[2019-05-04 15:00] VITALS: BP 113/58
--- NOTE | 2019-05-04 15:01 | NUR ---
PATIENT RESTING IN BED-IVF NS PATENT AND INFUSING VIA RIGHT AC SITE AT 150CC/HR. SITE IS HEALTHY. C/O ABD/BACK PAIN-6/10 ON PAIN SCALE. MEDICATED WITH DILAUDID 1MG IVP FOR PAIN. TALKING SIPS OF PO FLUIDS-TOLERATING WELL. CALL LIGHT IN REACH. WILL CONT TO MONITOR.
[2019-05-04 18:27] VITALS: BP 140/80
--- NOTE | 2019-05-04 19:00 | NUR ---
PATIENT RESTING IN BED-C/O EPIGASTRIC AND BACK PAIN-7/10 ON PAIN SCALE3. MEDICATED WITH DILAUDID 1MG IVP FOR PAIN. TAKING SIPS OF CLEAR LIQUIDS-TOLERATING FAIR. DENIES N/V. IVF PATENT AND INFUSING VIA RIGHT AC SITE AT 150CC/HR. SAFETY PRECAUTIONS REINFORCED. CALL LIGHT IN REACH. WILL CONT TO MONITOR.
--- NOTE | 2019-05-04 19:03 | NUR ---
REPORT RECEIVED FROM STEVEN MCKAY. PT RESTING IN BED, AT BEDSIDE. NO S/S OF DISTRESS AT THIS TIME. SAFETY PRECAUTIONS IN PLACE.
--- NOTE | 2019-05-04 20:54 | NUR ---
PT RESTING IN BED, ALERT AND ORIENTED. PT PROVIDED WITH ICE CREAM PER REQUEST. RESPIRATIONS EVEN AND UNLABORED ON RA, LUNGS SOUND CLEAR. PEDAL PULSES STRONG. PAIN IS A 5/10, TO BE MEDICATED PER EMAR ORDERS. PT REPORTS TAKE MEDICATIONS FROM HOME, PT EDUCATED ON HOSPITAL POLICY AND MEDICATIONS ADMINISTRATION SAFETY. MEDS TO BE SENT HOME WITH , REMAINING MEDS TO GO TO PHARMACY. MD TO BE NOTIFIED. SAFETY PRECAUTIONS IN PLACE. WILL CONTINUE TO MONITOR.
--- NOTE | 2019-05-05 00:12 | NUR ---
PT RESTING IN BED. RESPIRATIONS EVEN AND UNLABORED ON RA. NO S/S OF DISTRESS AT THIS TIME. SAFETY PRECAUTIONS IN PLACE. WILL CONTINUE TO MONITOR.
[2019-05-05 03:55] VITALS: BP 132/65
--- NOTE | 2019-05-05 05:00 | NUR ---
PT RESTING IN BED. NO S/S OF DISTRESS AT THIS TIME. SAFETY PRECAUTIONS IN PLACE. WILL CONTINUE TO MONITOR.
[2019-05-05 05:32] LABS: IMMATURE GRANULOCYTES 0.3 % (0.0-5.0); MEAN CELL VOLUME 98.5 fL CALC (80.0-100.0); MEAN CORPUSCULAR HGB 32.1 pG CALC (26.0-32.0); MEAN CORPUSCULAR HGB CONC 32.6 g/L CALC (32.0-36.0); NEUT# 3.84 thou/uL (2.00-7.15); RED BLOOD COUNT 3.36 mill/uL (4.20-5.60); RED CELL DISTRI WIDTH 12.7 % (11.5-15.5)
[2019-05-05 05:47] LABS: HEMATOCRIT 33.1 % (37.0-47.0); HEMOGLOBIN 10.8 g/dl (12.0-16.0)
[2019-05-05 06:00] LABS: ANION GAP 8 (6-22 (CALC)); BUN 5 mg/dL (7-17); BUN/CREATININE RATIO 9 (12-20 (CALC)); CARBON DIOXIDE 23 mmol/l (22-30); CHLORIDE 109 mmol/l (95-108); CREATININE 0.6 mg/dL (0.5-1.0); GFR > 60 ML/MIN (>=60 (CALC)); GFR FOR AFR.AMER. > 60 ML/MIN (>=60 (CALC)); MAGNESIUM 1.5 mg/dL (1.6-2.3); POTASSIUM 3.5 mmol/l (3.5-5.1); SODIUM 136 mmol/l (137-146)
[2019-05-05 07:56] VITALS: BP 140/78
--- NOTE | 2019-05-05 08:04 | NUR ---
ASSESSMENT DONE. PT IS A&O X3 BUT DROWSY. RESPS EVEN AND UNLABORED. PT STATED PAIN IN ABD 11/09. MEDICATED PT WITH ROXICODONE. IVF INFUSING WELL. PT HAS A TEMP 100.6. REMOVED BLANKET AND MADE ROOM COOL. PT DENIES ANY OTHER NEEDS AT THIS TIME. CALL LIGHT IN REACH.
--- NOTE | 2019-05-05 09:45 | NUR ---
NOTIFIED BRYAN OSULLIVAN RE: PT TEMP WAS 100.6 AND NOW 99.2.
--- NOTE | 2019-05-05 10:43 | NUR ---
PT STATED PAIN IN ABD. MEDICATED PT WITH DILAUDID. PT DENIES ANY OTHER NEEDS AT THIS TIME. CALL LIGHT IN REACH.
--- NOTE | 2019-05-05 15:11 | NUR ---
PT STATED PAIN IN ABD. MEDICATED PT WITH ROXICODONE. PT TOOK HER HOME MEDICATION PILL ANASTROZOLE. PO FLUIDS PROVIDED. PT DENIES ANY OTHER NEEDS AT THIS TIME. CALL LIGHT IN REACH.
[2019-05-05 15:50] VITALS: BP 141/75
[2019-05-05 18:30] VITALS: BP 127/70
--- NOTE | 2019-05-05 18:55 | NUR ---
REPORT RECEIVED FROM STEVEN POON. PT RESTING IN BED, NO S/S OF DISTRESS AT THIS TIME. SAFETY PRECAUTIONS IN PLACE. WILL CONTINUE TO MONITOR.
--- NOTE | 2019-05-05 21:10 | NUR ---
PT RESTING IN BED. ALERT AND ORIENTED. RESPIRATIONS EVEN AND UNLABORED ON RA. LUNGS SOUND CLEAR DIMINISHED. PEDAL PULSES STRONG. PT REPORTS HAVING MILD PAIN IN HER ABD AND MID BACK. PT REPOSITIONED. SAFETY PRECAUTIONS IN PLACE. WILL CONTINUE TO MONITOR.
[2019-05-06 02:45] VITALS: BP 156/81
--- NOTE | 2019-05-06 04:10 | NUR ---
PT RESTING IN BED. NO S/S OF DISTRESS AT THIS TIME. SAFETY PRECAUTIONS IN PLACE. WILL CONTINUE TO MONIOR.
[2019-05-06 05:34] LABS: AMYLASE 184 u/l (30-110); ANION GAP 9 (6-22 (CALC)); BUN 3 mg/dL (7-17); BUN/CREATININE RATIO 4 (12-20 (CALC)); CARBON DIOXIDE 26 mmol/l (22-30); CHLORIDE 107 mmol/l (95-108); CREATININE 0.7 mg/dL (0.5-1.0); GFR > 60 ML/MIN (>=60 (CALC)); GFR FOR AFR.AMER. > 60 ML/MIN (>=60 (CALC)); LIPASE 1044 u/l (23-300); MAGNESIUM 1.6 mg/dL (1.6-2.3); POTASSIUM 3.3 mmol/l (3.5-5.1); SODIUM 139 mmol/l (137-146)
[2019-05-06 07:35] VITALS: BP 140/71
--- NOTE | 2019-05-06 07:35 | NUR ---
RESTING IN BED ON ROUNDS. RESP NON-LABORED. LUNGS CLEAR. C/O ABD PAIN. IV SITE IN RAC SITE BENIGN, NS INFUSING AT 125 ML/HR. DISCUSSED PLAN OF CARE. WILL MEDICATE FOR PAIN ORDERED. CALL CHIN IN REACH.
--- NOTE | 2019-05-06 09:00 | NUR ---
PATIENT UP IN ROOM. DR CROW IN TO SEE PATIENT.
--- NOTE | 2019-05-06 12:00 | NUR ---
RESTING IN BED. ATE A SMALL AMOUNT OF SOFT LUNCH TRAY.
[2019-05-06 14:41] VITALS: BP 146/83
--- NOTE | 2019-05-06 16:05 | NUR ---
RESTING WITH EYES CLSOED. RESP NON-LABORED. IV INFUSING WITHOUT INCIDENT. NO T DISTURBED AT THIS TIME.
--- NOTE | 2019-05-06 19:30 | NUR ---
PATIENT RESTING IN BED AT THIS TIME WITH AT BEDSIDE. PATIENT IS AWAKE ALERT AND ORIENTEDX3. PATIENT HAD SOFT DIET AT DINNER-ATE FAIR AND TOLERATED FAIR. PATIENT WITH HYPERACTIVE BS. PASSING FALTUS BUT NO STOOL SINCE ADMISSION ON 05/04. LUNGS ARE CLEAR. NO PERIPERAL EDEMA NOTED. PULSES ARE PALPABLE. PATIENT STATES THAT SHE IS FEELING BETTER OVERALL. IV SITE TO RIGHT AC INTACT WITH IVF NS PATENT AND INFUSING AT 125CC/HR. SITE REMAINS HEALTHY AT THIS TIME. SAFETY PRECAUTIONS REINFORCED. CALL LIGHT IN REACH. WILL CONT TO MONITOR.
[2019-05-06 19:46] VITALS: BP 137/74
--- NOTE | 2019-05-06 20:45 | NUR ---
PATIENT RESTING IN BED-C/O ABD AND BACK PAIN-MEDICATED WITH DILAUDID 1MG IVP ORDERED FOR PAIN. HS MEDS GIVEN. CALL LIGHT IN REACH. WILL CONT TO MONITOR.
--- NOTE | 2019-05-07 02:00 | NUR ---
PATIENT RESTING IN BED-C/O ABD AND BACK PAIN. MEDICATED WITH DILAUDID 1MG IVP FOR PAIN. IVF PATENT AND INFSUING AT 125CC/HR. SITE TO RAC INTACT AND REMAINS HEALTHY. CALL LIGHT IN REACH. WILL CONT TO MONITOR.
[2019-05-07 04:30] VITALS: BP 119/67
--- NOTE | 2019-05-07 06:06 | NUR ---
PATIENT APPEARS SLEEPING AT THIS ITME WITH EYES CLOSED. RESP ARE EVEN AND UNLABORED. IVF MAINTAINED AT 125CC/HR. SITE IS HEALTHY. CALL LIGHT IN REACH. WILL CONT TO MONITOR
[2019-05-07 07:15] VITALS: BP 160/78
--- NOTE | 2019-05-07 08:15 | NUR ---
PATIENT A/OX3,S/S RESP DISTRESS, PATIENT C/O 09/09 ABD PAIN, TREATED PATIENT PAIN PER MD ORDERS, WILL CONTINUE TO MONITOR PAIN HOURLY ROUNDING, CALL LIGHT WITHIN REACH
[2019-05-07] MEDS ORDERED: CREON12000 UNT PO (10:33)
[2019-05-07] MEDS ORDERED: PROTONIX40 MG PO (10:34)
[2019-05-07 11:00] VITALS: BP 132/73
--- NOTE | 2019-05-07 12:00 | NUR ---
PATIENT A/O, NO S/S RESP DISTRESS, PATIENT PAIN INTENSITY DECREASE IN ABD AFTER PAIN MED GIVEN, DR. CROW DISCHARGE PATIENT TO HOME, EDUCATED PATIENT VERBALLY AND PROVIDED PATIENT WITH EDUCATIONAL MATERIAL, PATIENT UNDERSTOOD DISCHARED INSTRUCTIONS EVIDENT BY TEACH BACK, PATIENT TRANSPORTATION IS NOT AVAILABLE UNTIL 1300, WILL CONTINUE TO MONITOR PATIENT HOURLY ROUNDING, CALL LIGHT WITH REACH
[2019-05-16] MEDS ORDERED: MIRTAZAPINE15 M1 PO (16:48)
[2019-05-16] MEDS ORDERED: FOLIC ACID1 M1 PO (16:49)
[2019-10-26] MEDS ORDERED: ANASTROZOLE1 MG PO (14:10)
[2019-10-26] MEDS ORDERED: CREON3000 UNIT PO (14:10)
[2019-10-26] MEDS ORDERED: VITAMIN B-12500 MCG PO (14:10)
== END 2019-05-07 13:35 | disposition home or self-care (01) | DRG 440 ==
LOC: ED 23:01 → ED-I 05-04 02:28 → ED 05-04 02:42 → MS2 05-04 02:43
PROVIDERS: Emergency Medicine; Nurse Practitioner Family; ADMIT Internal Medicine; ATTEND Internal Medicine
DX: K85.20 Alcohol induced acute pancreatitis without necrosis or infection (principal); E87.6 Hypokalemia; K86.0 Alcohol-induced chronic pancreatitis; I10 Essential (primary) hypertension; J43.9 Emphysema, unspecified; E83.42 Hypomagnesemia; G89.29 Other chronic pain; M54.9 Dorsalgia, unspecified; G47.00 Insomnia, unspecified; F41.9 Anxiety disorder, unspecified; F32.9 Major depressive disorder, single episode, unspecified; F10.129 Alcohol abuse with intoxication, unspecified; C50.912 Malignant neoplasm of unspecified site of left female breast; C50.911 Malignant neoplasm of unspecified site of right female breast; F17.210 Nicotine dependence, cigarettes, uncomplicated; Z79.811 Long term (current) use of aromatase inhibitors; Z85.038 Personal history of other malignant neoplasm of large intestine; Z79.891 Long term (current) use of opiate analgesic; Z90.13 Acquired absence of bilateral breasts and nipples; Z90.49 Acquired absence of other specified parts of digestive tract
CPT/HCPCS: J3475; S0164

== ENCOUNTER 2019-05-17 | Day surgery (SDC) | payer BC ==
[~2019-05-17] MED LIST changes: +CREON12000 UNT PO; +FOLIC ACID1 M1 PO; +MIRTAZAPINE15 M1 PO; +PROTONIX40 MG PO
[2019-10-26] MEDS ORDERED: VITAMIN B-12500 MCG PO (14:10)
[2019-10-26] MEDS ORDERED: CREON3000 UNIT PO (14:10)
[2019-10-26] MEDS ORDERED: ANASTROZOLE1 MG PO (14:10)
== END 2019-05-17 10:30 | disposition home or self-care (01) | DRG 951 ==
PROC: 0DBN8ZX Excision of Sigmoid Colon, Via Natural or Artificial Opening Endoscopic, Diagnostic (ICD-10-PCS; principal; 2019-05-17)
DX: Z12.11 Encounter for screening for malignant neoplasm of colon (principal); D12.5 Benign neoplasm of sigmoid colon; I10 Essential (primary) hypertension; Z87.19 Personal history of other diseases of the digestive system; Z90.49 Acquired absence of other specified parts of digestive tract

== ENCOUNTER 2019-07-22 | Emergency (ER) | payer BC ==
[2019-07-22 22:58] LABS: IMMATURE GRANULOCYTES 0.3 % (0.0-5.0); MEAN CELL VOLUME 94.7 fL CALC (80.0-100.0); MEAN CORPUSCULAR HGB 31.4 pG CALC (26.0-32.0); MEAN CORPUSCULAR HGB CONC 33.1 g/dL CAL (32.0-36.0); NEUT# 11.13 thou/uL (2.00-7.15); RED BLOOD COUNT 4.37 mill/uL (4.20-5.60)
[2019-07-22 23:06] LABS: HEMATOCRIT 41.4 % (37.0-47.0); HEMOGLOBIN 13.7 g/dl (12.0-16.0)
[2019-07-22 23:18] LABS: ALBUMIN 4.5 g/dL (3.2-5.0); ALKALINE PHOSPHATASE 78 u/l (38-126); ANION GAP 12 (6-22 (CALC)); BILIRUBIN, TOTAL 0.3 mg/dL (0.0-1.4); BUN 12 mg/dL (7-17); BUN/CREATININE RATIO 13 (12-20 (CALC)); CARBON DIOXIDE 30 mmol/l (22-30); CHLORIDE 101 mmol/l (95-108); CREATININE 0.9 mg/dL (0.5-1.0); GFR > 60 ML/MIN (>=60 (CALC)); GFR FOR AFR.AMER. > 60 ML/MIN (>=60 (CALC)); POTASSIUM 3.6 mmol/l (3.5-5.1); SGOT/AST 24 u/l (14-36); SODIUM 139 mmol/l (137-146); TOTAL PROTEIN 7.2 g/dL (6.3-8.2)
[2019-07-22 23:30] LABS: MYOGLOBIN 26 ng/mL (0 - 62)
[2019-07-23 00:09] LABS: AMYLASE 4135 u/l (30-110)
[2019-07-23 00:11] LABS: LIPASE 32229 u/l (23-300)
[2019-07-23] MEDS ORDERED: LORTAB 1010 MG PO (00:19)
[2019-07-23] MEDS ORDERED: ONDANSETRON4 MG PO (00:19)
[2019-07-23 00:21] LABS: BARBITURATES NEGATIVE (NEGATIVE); COCAINE NEGATIVE (NEGATIVE); METHADONE NEGATIVE (NEGATIVE); OXCYCODONE POSITIVE (NEGATIVE); TETRAHYDROCANNABIONOL NEGATIVE (NEGATIVE); TRICYLIC ANTIDEPRESSANTS NEGATIVE (NEGATIVE)
[2019-07-23] MEDS ORDERED: PROTONIX40 MG PO (00:23)
[2019-07-23 00:25] LABS: URINE BILIRUBIN - DIPSTICK NEGATIVE (NEGATIVE); URINE BLOOD DIPSTICK NEGATIVE (NEGATIVE); URINE COLOR YELLOW; URINE GLUCOSE - DIPSTICK NEGATIVE (NEGATIVE); URINE KETONE NEGATIVE (NEGATIVE); URINE LEUK ESTERASE NEGATIVE (NEGATIVE); URINE NITRITE - DIPSTICK NEGATIVE (Negative); URINE PROTEIN - DIPSTICK NEGATIVE (NEG-TRACE); URINE UROBILINOGEN - DIPSTICK 0.2 E.U./dL (0.2)
[2019-10-26] MEDS ORDERED: CREON3000 UNIT PO (14:10)
[2019-10-26] MEDS ORDERED: ANASTROZOLE1 MG PO (14:10)
[2019-10-26] MEDS ORDERED: VITAMIN B-12500 MCG PO (14:10)
== END 2019-07-23 00:35 | disposition home or self-care (01) | DRG 440 ==
PROVIDERS: Emergency Medicine
DX: K86.1 Other chronic pancreatitis (principal); I10 Essential (primary) hypertension; Z90.49 Acquired absence of other specified parts of digestive tract; F17.200 Nicotine dependence, unspecified, uncomplicated; Z85.038 Personal history of other malignant neoplasm of large intestine
CPT/HCPCS: Q9967; S0164

== ENCOUNTER 2019-11-03 10:32 | Day surgery (SDC) | payer BC ==
[~2019-11-03] VITALS: Ht 154.9 cm; Wt 48.5 kg
[~2019-11-03 10:32] MED LIST changes: +CREON3000 UNIT PO; +ONDANSETRON4 MG PO; +VITAMIN B-12500 MCG PO
[2019-11-03 13:15] VITALS: BP 165/88
== END 2019-11-03 13:52 | disposition home or self-care (01) | DRG 392 ==
LOC: ENDO 10:32 → ORM 11:45 → ENDO 11:45
PROVIDERS: ATTEND Internal Medicine Gastroenterology
PROC: 0DB48ZX Excision of Esophagogastric Junction, Via Natural or Artificial Opening Endoscopic, Diagnostic (ICD-10-PCS; principal; 2019-11-03)
DX: K29.50 Unspecified chronic gastritis without bleeding (principal); K21.9 Gastro-esophageal reflux disease without esophagitis; K44.9 Diaphragmatic hernia without obstruction or gangrene; I10 Essential (primary) hypertension; Z11.59 Encounter for screening for other viral diseases

== ENCOUNTER 2020-09-01 13:02 | Emergency (ER) | payer BC ==
[2020-09-01] MEDS ORDERED: PROTONIX40 M2 PO (13:46)
[2020-09-01] MEDS ORDERED: SUCRALFATE1 GM PO (13:47)
[2020-09-01] MEDS ORDERED: ZOFRAN4 MG/TAB PO (13:47)
[2020-09-01 13:56] LABS: HEMATOCRIT 38.8 % (37.0-47.0); HEMOGLOBIN 12.9 g/dl (12.0-16.0); IMMATURE GRANULOCYTES 0.3 % (0.0-5.0); MEAN CELL VOLUME 93.5 fL CALC (80.0-100.0); MEAN CORPUSCULAR HGB 31.1 pG CALC (26.0-32.0); MEAN CORPUSCULAR HGB CONC 33.2 g/dL CAL (32.0-36.0); NEUT# 6.23 thou/uL (2.00-7.15); RED BLOOD COUNT 4.15 mill/uL (4.20-5.60); RED CELL DISTRI WIDTH 13.2 % (11.5-15.5); URINE BILIRUBIN - DIPSTICK NEGATIVE (NEGATIVE); URINE BLOOD DIPSTICK TRACE-LYSED (NEGATIVE); URINE CLARITY CLEAR; URINE COLOR YELLOW; URINE GLUCOSE - DIPSTICK NEGATIVE (NEGATIVE); URINE KETONE NEGATIVE (NEGATIVE); URINE LEUK ESTERASE NEGATIVE (Negative); URINE NITRITE - DIPSTICK NEGATIVE (Negative); URINE PROTEIN - DIPSTICK NEGATIVE (NEG-TRACE); URINE SPECIFIC GRAVITY 1.015; URINE UROBILINOGEN - DIPSTICK 0.2 E.U./dL (0.2)
[2020-09-01 14:09] LABS: ALBUMIN 4.6 g/dL (3.2-5.0); ALKALINE PHOSPHATASE 83 u/l (38-126); ANION GAP 8 (6-22 (CALC)); BUN 9 mg/dL (7-17); BUN/CREATININE RATIO 11 (12-20 (CALC)); CARBON DIOXIDE 32 mmol/l (22-30); CHLORIDE 99 mmol/l (95-108); CREATININE 0.8 mg/dL (0.5-1.0); GFR > 60 ML/MIN (>=60 (CALC)); GFR FOR AFR.AMER. > 60 ML/MIN (>=60 (CALC)); LIPASE 1023 u/l (23-300); POTASSIUM 3.5 mmol/l (3.5-5.1); SGOT/AST 21 u/l (14-36); SODIUM 136 mmol/l (137-146); TOTAL PROTEIN 7.8 g/dL (6.3-8.2)
[2020-09-01 14:11] LABS: BILIRUBIN, TOTAL 0.6 mg/dL (0.0-1.4)
[2020-09-01 15:30] VITALS: BP 164/77
== END 2020-09-01 16:50 | DRG 440 ==
LOC: ED 13:02
DX: K85.90 Acute pancreatitis without necrosis or infection, unspecified (principal); K86.1 Other chronic pancreatitis; I10 Essential (primary) hypertension; F17.210 Nicotine dependence, cigarettes, uncomplicated; Z85.038 Personal history of other malignant neoplasm of large intestine; Z90.49 Acquired absence of other specified parts of digestive tract; Z20.822 Contact with and (suspected) exposure to COVID-19
CPT/HCPCS: Q9967

== ENCOUNTER 2021-05-06 08:09 | Observation (INO) | payer BC ==
[~2021-05-06] VITALS: Ht 154.9 cm; Wt 43.0 kg
[~2021-05-06 08:09] MED LIST changes: +PROTONIX40 M2 PO; +SUCRALFATE1 GM PO; +ZOFRAN4 MG/TAB PO
[2021-05-06 09:05] LABS: GFR > 60 ML/MIN (>=60 (CALC)); GFR FOR AFR.AMER. > 60 ML/MIN (>=60 (CALC))
[2021-05-06 09:10] LABS: URINE BILIRUBIN - DIPSTICK NEGATIVE (NEGATIVE); URINE BLOOD DIPSTICK NEGATIVE (NEGATIVE); URINE COLOR YELLOW; URINE GLUCOSE - DIPSTICK NEGATIVE (NEGATIVE); URINE KETONE 15 mg/dL (NEGATIVE); URINE LEUK ESTERASE NEGATIVE (NEGATIVE); URINE PROTEIN - DIPSTICK NEGATIVE (NEG-TRACE); URINE UROBILINOGEN - DIPSTICK 0.2 E.U./dL (0.2)
[2021-05-06 09:11] LABS: HEMATOCRIT 43.3 % (37.0-47.0); HEMOGLOBIN 14.2 g/dl (12.0-16.0); IMMATURE GRANULOCYTES 0.2 % (0.0-5.0); MEAN CELL VOLUME 96.7 fL CALC (80.0-100.0); MEAN CORPUSCULAR HGB 31.7 pG CALC (26.0-32.0); MEAN CORPUSCULAR HGB CONC 32.8 g/dL CAL (32.0-36.0); NEUT# 11.17 thou/uL (2.00-7.15); RED BLOOD COUNT 4.48 mill/uL (4.20-5.60); RED CELL DISTRI WIDTH 12.8 % (11.5-15.5)
[2021-05-06 09:16] LABS: ALKALINE PHOSPHATASE 95 u/l (38-126); BILIRUBIN, TOTAL 0.5 mg/dL (0.0-1.4); BUN 10 mg/dL (7-17); BUN/CREATININE RATIO 12 (12-20 (CALC)); CHLORIDE 108 mmol/l (95-108); CREATININE 0.8 mg/dL (0.5-1.0); GFR > 60 ML/MIN (>=60 (CALC)); GFR FOR AFR.AMER. > 60 ML/MIN (>=60 (CALC)); LIPASE 1175 u/l (23-300); POTASSIUM 3.7 mmol/l (3.5-5.1); SGOT/AST 22 u/l (14-36); SODIUM 139 mmol/l (137-146); TOTAL PROTEIN 6.3 g/dL (6.3-8.2)
[2021-05-06 09:21] LABS: ALBUMIN 3.6 g/dL (3.2-5.0); ANION GAP 11 (6-22 (CALC)); CARBON DIOXIDE 24 mmol/l (22-30)
[2021-05-06 09:43] LABS: URINE NITRITE - DIPSTICK NEGATIVE (Negative)
[2021-05-06 12:37] VITALS: BP 153/82
[2021-05-06] MEDS ORDERED: PERCOCET1 TA2 PO (12:49)
[2021-05-06] MEDS ORDERED: ZOFRAN4 MG/TAB PO (14:52)
[2021-05-06 16:02] VITALS: BP 127/58
[2021-05-06 19:00] VITALS: BP 127/61
== END 2021-05-06 20:07 | disposition home or self-care (01) | DRG 440 ==
LOC: ED 08:09 → ED-I 11:07 → ED 11:10 → MS2 11:11
PROVIDERS: Family Medicine; ADMIT Hospitalist; ATTEND Hospitalist
DX: K85.20 Alcohol induced acute pancreatitis without necrosis or infection (principal); K86.0 Alcohol-induced chronic pancreatitis; I10 Essential (primary) hypertension; F10.11 Alcohol abuse, in remission; F17.210 Nicotine dependence, cigarettes, uncomplicated; Z85.038 Personal history of other malignant neoplasm of large intestine; Z85.3 Personal history of malignant neoplasm of breast; Z92.21 Personal history of antineoplastic chemotherapy; Z87.11 Personal history of peptic ulcer disease; Z20.822 Contact with and (suspected) exposure to COVID-19
CPT/HCPCS: G0378; Q9967

== ENCOUNTER 2021-07-07 17:56 | Emergency (ER) | payer BC ==
[2021-07-07] VITALS (7 sets, daily range): BP systolic 121–162; BP diastolic 65–85
[~2021-07-07] VITALS: Ht 154.9 cm; Wt 40.2 kg
[~2021-07-07 17:56] MED LIST changes: +PERCOCET1 TA2 PO
[2021-07-07 19:56] LABS: URINE BILIRUBIN - DIPSTICK NEGATIVE (NEGATIVE); URINE BLOOD DIPSTICK NEGATIVE (NEGATIVE); URINE COLOR YELLOW; URINE GLUCOSE - DIPSTICK NEGATIVE (NEGATIVE); URINE KETONE NEGATIVE (NEGATIVE); URINE LEUK ESTERASE NEGATIVE (NEGATIVE); URINE PROTEIN - DIPSTICK NEGATIVE (NEG-TRACE); URINE UROBILINOGEN - DIPSTICK 0.2 E.U./dL (0.2)
[2021-07-07 20:01] LABS: URINE NITRITE - DIPSTICK NEGATIVE (Negative)
[2021-07-07 20:03] LABS: HEMATOCRIT 38.2 % (37.0-47.0); HEMOGLOBIN 12.9 g/dl (12.0-16.0); IMMATURE GRANULOCYTES 0.1 % (0.0-5.0); MEAN CELL VOLUME 94.6 fL CALC (80.0-100.0); MEAN CORPUSCULAR HGB 31.9 pG CALC (26.0-32.0); MEAN CORPUSCULAR HGB CONC 33.8 g/dL CAL (32.0-36.0); NEUT# 7.62 thou/uL (2.00-7.15); RED BLOOD COUNT 4.04 mill/uL (4.20-5.60)
[2021-07-07 20:18] LABS: ALKALINE PHOSPHATASE 83 u/l (38-126); AMYLASE 102 u/l (30-110); ANION GAP 11 (6-22 (CALC)); BILIRUBIN, TOTAL 0.3 mg/dL (0.0-1.4); BUN 7 mg/dL (7-17); BUN/CREATININE RATIO 10 (12-20 (CALC)); CARBON DIOXIDE 25 mmol/l (22-30); CHLORIDE 107 mmol/l (95-108); CREATININE 0.7 mg/dL (0.5-1.0); ETHYL ALCOHOL 0 mg/dl (0-30); GFR > 60 ML/MIN (>=60 (CALC)); GFR FOR AFR.AMER. > 60 ML/MIN (>=60 (CALC)); LIPASE 289 u/l (23-300); POTASSIUM 3.4 mmol/l (3.5-5.1); SGOT/AST 19 u/l (14-36); SODIUM 139 mmol/l (137-146)
[2021-07-07] MEDS ORDERED: PROTONIX40 M2 PO (22:00)
[2021-07-07] MEDS ORDERED: ZOFRAN4 MG/TAB PO (22:00)
[2021-07-07] MEDS ORDERED: HYDROCO/APAP1 TA9 PO (22:00)
== END 2021-07-07 22:24 | disposition home or self-care (01) | DRG 440 ==
LOC: ED 17:56
DX: K85.90 Acute pancreatitis without necrosis or infection, unspecified (principal); K86.1 Other chronic pancreatitis; I10 Essential (primary) hypertension; Z85.3 Personal history of malignant neoplasm of breast; Z90.13 Acquired absence of bilateral breasts and nipples; Z85.038 Personal history of other malignant neoplasm of large intestine; Z90.49 Acquired absence of other specified parts of digestive tract; Z92.21 Personal history of antineoplastic chemotherapy; Z20.822 Contact with and (suspected) exposure to COVID-19
CPT/HCPCS: Q9967

== ENCOUNTER 2022-03-11 21:03 | Observation (INO) | payer BC ==
[~2022-03-11] VITALS: Ht 154.9 cm; Wt 84.0 kg
[~2022-03-11 21:03] MED LIST changes: +HYDROCO/APAP1 TA9 PO
[2022-03-11 22:11] LABS: URINE BILIRUBIN - DIPSTICK NEGATIVE (NEGATIVE); URINE BLOOD DIPSTICK TRACE-INTACT (NEGATIVE); URINE COLOR YELLOW; URINE GLUCOSE - DIPSTICK NEGATIVE (NEGATIVE); URINE KETONE NEGATIVE (NEGATIVE); URINE LEUK ESTERASE NEGATIVE (NEGATIVE); URINE PROTEIN - DIPSTICK NEGATIVE (NEG-TRACE); URINE SPECIFIC GRAVITY 1.015; URINE UROBILINOGEN - DIPSTICK 0.2 E.U./dL (0.2)
[2022-03-11 22:12] LABS: HEMATOCRIT 41.4 % (37.0-47.0); HEMOGLOBIN 14.1 g/dl (12.0-16.0); IMMATURE GRANULOCYTES 0.1 % (0.0-5.0); MEAN CELL VOLUME 94.5 fL CALC (80.0-100.0); MEAN CORPUSCULAR HGB 32.2 pG CALC (26.0-32.0); MEAN CORPUSCULAR HGB CONC 34.1 g/dL CAL (32.0-36.0); NEUT# 6.8 thou/uL (2.00-7.15); RED BLOOD COUNT 4.38 mill/uL (4.20-5.60)
[2022-03-11 22:13] LABS: URINE NITRITE - DIPSTICK NEGATIVE (Negative)
[2022-03-11 22:21] LABS: ALBUMIN 4.8 g/dL (3.2-5.0); ANION GAP 12 (6-22 (CALC)); BUN 9 mg/dL (7-17); BUN/CREATININE RATIO 11 (12-20 (CALC)); CARBON DIOXIDE 28 mmol/l (22-30); CHLORIDE 103 mmol/l (95-108); CREATININE 0.8 mg/dL (0.5-1.0); GFR FOR AFR.AMER. > 60 ML/MIN (>=60 (CALC)); GFR OTHER RACES > 60 ML/MIN (>=60 (CALC)); LIPASE 659 u/l (23-300); POTASSIUM 3.2 mmol/l (3.5-5.1); SODIUM 141 mmol/l (137-146); TOTAL PROTEIN 8.1 g/dL (6.3-8.2)
[2022-03-11 22:32] LABS: ALKALINE PHOSPHATASE 388 u/l (38-126); BILIRUBIN, TOTAL 0.7 mg/dL (0.0-1.4); SGOT/AST 302 u/l (14-36)
[2022-03-12] MEDS ORDERED: NORVASC10 M1 PO (00:25)
[2022-03-12] MEDS ORDERED: ANASTROZOLE1 MG PO (00:25)
[2022-03-12] MEDS ORDERED: BUSPIRONE5 MG PO (00:26)
[2022-03-12] MEDS ORDERED: FOLIC ACID1 MG PO (00:26)
[2022-03-12] MEDS ORDERED: MIRTAZAPINE15 MG PO (00:27)
[2022-03-12] MEDS ORDERED: TRAZODONE50 MG PO (00:27)
[2022-03-12] MEDS ORDERED: PROTONIX40 M1 IV (00:28)
[2022-03-12] MEDS ORDERED: LOVASTATIN40 M1 PO (00:28)
[2022-03-12] MEDS ORDERED: CREON24000 UNT PO (00:29)
[2022-03-12] MEDS ORDERED: ZOFRAN4 MG/TAB PO (00:29)
[2022-03-12 00:47] VITALS: BP 139/72
[2022-03-12 07:18] VITALS: BP 131/68
[2022-03-12 10:17] VITALS: BP 135/70
[2022-03-12] MEDS ORDERED: GABAPENTIN300 M2 PO (13:35)
[2022-03-12 14:50] VITALS: BP 103/58
[2022-03-12 19:03] VITALS: BP 127/61
[2022-03-13] VITALS: BP 131/59
[2022-03-13 00:07] VITALS: BP 131/59
[2022-03-13 04:19] VITALS: BP 150/69
[2022-03-13 05:53] LABS: HEMATOCRIT 38.4 % (37.0-47.0); HEMOGLOBIN 12.8 g/dl (12.0-16.0); MEAN CORPUSCULAR HGB CONC 33.3 g/dL CAL (32.0-36.0); RED CELL DISTRI WIDTH 12.7 % (11.5-15.5)
[2022-03-13 06:34] LABS: ALKALINE PHOSPHATASE 334 u/l (38-126); AMYLASE 90 u/l (30-110); BILIRUBIN, TOTAL 0.6 mg/dL (0.0-1.4); BUN 7 mg/dL (7-17); BUN/CREATININE RATIO 13 (12-20 (CALC)); CARBON DIOXIDE 26 mmol/l (22-30); CHLORIDE 112 mmol/l (95-108); CREATININE 0.5 mg/dL (0.5-1.0); GFR FOR AFR.AMER. > 60 ML/MIN (>=60 (CALC)); GFR OTHER RACES > 60 ML/MIN (>=60 (CALC)); LIPASE 339 u/l (23-300); MAGNESIUM 1.7 mg/dL (1.6-2.3); SGOT/AST 85 u/l (14-36); SODIUM 141 mmol/l (137-146)
[2022-03-13 06:39] LABS: ALBUMIN 3.4 g/dL (3.2-5.0); ANION GAP 7 (6-22 (CALC)); POTASSIUM 3.9 mmol/l (3.5-5.1); TOTAL PROTEIN 5.8 g/dL (6.3-8.2)
[2022-03-13 06:51] VITALS: BP 158/77
[2022-03-13 07:40] VITALS: BP 158/77
[2022-03-13 09:01] VITALS: BP 158/77
== END 2022-03-13 11:23 | disposition home or self-care (01) | DRG 440 ==
LOC: ED 21:03 → ED-I 22:30 → ED 22:52 → MS2 22:52
PROVIDERS: Emergency Medicine; Internal Medicine; ADMIT Internal Medicine; ATTEND Internal Medicine
DX: K85.90 Acute pancreatitis without necrosis or infection, unspecified (principal); K86.1 Other chronic pancreatitis; K83.8 Other specified diseases of biliary tract; I10 Essential (primary) hypertension; E87.6 Hypokalemia; J44.9 Chronic obstructive pulmonary disease, unspecified; F32.A Depression, unspecified; F41.9 Anxiety disorder, unspecified; Z87.11 Personal history of peptic ulcer disease; Z85.038 Personal history of other malignant neoplasm of large intestine; Z85.3 Personal history of malignant neoplasm of breast; Z92.21 Personal history of antineoplastic chemotherapy; Z90.49 Acquired absence of other specified parts of digestive tract; Z20.822 Contact with and (suspected) exposure to COVID-19
CPT/HCPCS: G0378; J1650; Q9967; S0164

== ENCOUNTER 2023-11-25 01:25 | Observation (INO) | payer BC ==
[2023-11-25] VITALS (14 sets, daily range): BP systolic 107–147; BP diastolic 58–86
[~2023-11-25] VITALS: Ht 154.9 cm; Wt 37.0 kg
[~2023-11-25 01:25] MED LIST changes: +BUSPIRONE5 MG PO; +FOLIC ACID1 MG PO; +GABAPENTIN300 M2 PO; +MIRTAZAPINE15 MG PO; +NORVASC10 M1 PO; +PROTONIX40 M1 IV
--- NOTE | 2023-11-25 01:30 | NUR ---
PT AMBULATORY TO ROOM 12. TRIAGED AT BEDSIDE.
[2023-11-25] MEDS ORDERED: KETOROLAC TROMETHAMINE 15 MG/ML SDV IV ONE (01:40)
[2023-11-25] MEDS ORDERED: ONDANSETRON HCl 4 MG/2 ML SDV IV ONE ×2 (01:40→05:35)
[2023-11-25] MEDS ORDERED: MORPHINE SULFATE 4 MG/ML VIAL IV ONE ×2 (01:40→05:35)
[2023-11-25] MEDS ORDERED: SODIUM CHLORIDE 0.9% 1,000 ML IV ONE ×2 (01:40→05:35)
[2023-11-25 02:06] LABS: BASO% 0.6 % (0-3); EOS% 5.9 % (0-8); HEMATOCRIT 43.1 % (37.0-47.0); HEMOGLOBIN 14.5 g/dl (12.0-16.0); IMMATURE GRANULOCYTES 0.2 % (0.0-5.0); LYMPH% 21.5 % (15-41); MEAN CELL VOLUME 93.9 fL CALC (80.0-100.0); MEAN CORPUSCULAR HGB 31.6 pG CALC (26.0-32.0); MEAN CORPUSCULAR HGB CONC 33.6 g/dL CAL (32.0-36.0); MONO% 7.3 % (2-13); NEUT# 5.54 thou/uL (2.00-7.15); NEUT% 64.5 % (42-76); RED BLOOD COUNT 4.59 mill/uL (4.20-5.60); RED CELL DISTRI WIDTH 13.4 % (11.5-15.5)
[2023-11-25 02:16] LABS: ALBUMIN 3.5 g/dL (3.2-5.0); BILIRUBIN, TOTAL 0.6 mg/dL (0.02-1.3); CREATININE 0.8 mg/dL (0.5-1.0); MAGNESIUM 1.7 mg/dL (1.6-2.3); POTASSIUM 3.7 mmol/l (3.5-5.1); TOTAL PROTEIN 6.1 g/dL (6.3-8.2)
[2023-11-25] MEDS ORDERED: BUSPAR5 MG PO (02:24)
[2023-11-25 02:28] LABS: PROTHROMBIN TIME 9.7 SECONDS (9.0-12.5)
[2023-11-25] MEDS ORDERED: OMEPRAZOLE DR40 MG PO (02:29)
[2023-11-25] MEDS ORDERED: ROXICODONE15 M1 PO (02:30)
--- NOTE | 2023-11-25 02:45 | NUR ---
PT TAKEN TO CT
--- NOTE | 2023-11-25 03:30 | NUR ---
PT RETURNED FROM CT, URINE COLLECTED
--- NOTE | 2023-11-25 04:30 | NUR ---
PT HAS BEEN INFORMED THAT WE ARE WAITING FOR CT RESULTS TO COME BACK.
--- NOTE | 2023-11-25 05:50 | NUR ---
PT RESTING IN BED WITH EYES CLOSED, MEDICATED FOR PAIN AND NAUSEA.
[2023-11-25] MEDS ORDERED: ALUM & MAG HYDROX-SIMETHICONE 30 ML PO PRN (05:55)
[2023-11-25] MEDS ORDERED: ONDANSETRON 4 MG/TAB ODT PO PRN (05:55)
[2023-11-25] MEDS ORDERED: FAMOTIDINE 10MG/ML 2ML SDV IV PRN (05:55)
[2023-11-25] MEDS ORDERED: MAGNESIUM HYDROXIDE 30 ML UDC PO PRN ×2 (05:55→07:25)
[2023-11-25] MEDS ORDERED: ONDANSETRON HCl 4 MG/2 ML SDV IV PRN (05:55)
[2023-11-25] MEDS ORDERED: SODIUM CHLORIDE 0.9% 1,000 ML IV PRN ×2 (05:55→07:25)
[2023-11-25] MEDS ORDERED: IBUPROFEN 800 MG/TAB PO PRN (05:55)
[2023-11-25 06:12] LABS: URINE BILIRUBIN - DIPSTICK Negative (NEGATIVE); URINE BLOOD DIPSTICK Negative (NEGATIVE); URINE GLUCOSE - DIPSTICK Negative (NEGATIVE); URINE KETONE Negative (NEGATIVE); URINE LEUK ESTERASE Negative (NEGATIVE); URINE NITRITE - DIPSTICK Negative (Negative); URINE PROTEIN - DIPSTICK Negative (NEG-TRACE); URINE SPECIFIC GRAVITY 1.015; URINE UROBILINOGEN - DIPSTICK 0.2 E.U./dL (0.2)
[2023-11-25 06:16] LABS: URINE COLOR Yellow
--- NOTE | 2023-11-25 06:30 | NUR ---
REPORT CALLED TO ANTONETTE FLOWER ADMITTED TO [facility] [id number]. PT TRANSPORTED VIA .
[2023-11-25] MEDS ORDERED: ACETAMINOPHEN 325 MG/TAB PO PRN (07:25)
--- NOTE | 2023-11-25 08:00 | NUR ---
PT IN BED WITH HOB UP, PT IS ALERT AND OREINTED X 3, PT HAS NO C/O PAIN AND DENIES N/V AT THIS TIME. PT HAS HAS IV SITE TO RFA CLEAN AND INTACT WITH NS INFUSING @ 125 ML/HR. PT LUNGS CLEAR THROUGHOUT AND BREATHING IS NON LABORED. PT ABD IS SOFT, NON DISTENEDED AND BS HYPOACTIVE. PT SKIN CLEAN AND INTACT. PT AMBULATES TO BATHROOM WITH NO PROBLEMS FOR TOILETING NEEDS. PT HAS CALL LIGHT WITHIN REACH AND SAFETY MEASURES IN PLACE AT THIS TIME.
[2023-11-25] MEDS ORDERED: PANTOPRAZOLE SODIUM Sesquihydr 40 MG/TAB PO SCH (09:00)
[2023-11-25] MEDS ORDERED: amLODIPine BESYLATE 5 MG/TAB PO SCH (09:00)
[2023-11-25] MEDS ORDERED: busPIRone HCL 5 MG/TAB PO SCH (09:00)
[2023-11-25 09:42] LABS: CHOLESTEROL HDL RATIO 2.5 (<4.4 (CALC))
[2023-11-25] MEDS ORDERED: oxyCODONE HCL 15 MG/TAB PO SCH (10:00)
[2023-11-25] MEDS ORDERED: PANCREATIC ENZYMES 12 000 UNITS LIPASE PO SCH (11:30)
--- NOTE | 2023-11-25 12:00 | NUR ---
PT IN BED WITH HOB UP, PT HAS NO C/O PAIN AT THIS TIME. PT ON CLEAR LIQUID DIET, TOLERATING WELL. PT HAS CALL LIGHT WITHIN REACH AND SAFETY MEASURES IN PLACE AT THIS TIME.
[2023-11-25] MEDS ORDERED: oxyCODONE HCL 15 MG/TAB PO PRN (13:10)
[2023-11-25] MEDS ORDERED: HYDROmorphone HCL 2 MG/AMP IV PRN (14:20)
[2023-11-25] MEDS ORDERED: PROMETHAZINE HCL 25 MG/ML AMP IV PRN (14:35)
[2023-11-25] MEDS ORDERED: PROMETHAZINE HCL 12.5 MG in SODIUM CHLORIDE 0.9% 50 ML IV PRN (14:40)
--- NOTE | 2023-11-25 16:00 | NUR ---
PT IN BED WITH HOB UP, WATCHING TV. PT HAS NO C/O PAIN, N/V AT THIS TIME. PT HAS CALL LIGHT WITHIN REACH AND SAFETY MEASURES IN PLACE AT THIS TIME.
--- NOTE | 2023-11-25 19:00 | NUR ---
SHIFT CHANGE REPORT RECEIVED PT RESTING NO DISTRESS NOTED. PT ASKING WHEN IS SHE ABLE TO HAVE DILAUDID AGAIN. NURSE WHEN OVER HOW OFTEN SHE IS ABLE TO HAVE HER PRN MEDICATION AND WHAT IS AVAILABLE TO HER. CALL LIGHT WITHIN REACH. PLAN OF CARE ONGOING.
[2023-11-25] MEDS ORDERED: ENOXAPARIN SODIUM 40 MG/0.4 ML SYR SC SCH (21:00)
[2023-11-25] MEDS ORDERED: traZODone HCL 50 MG/TAB PO SCH (21:00)
[2023-11-25] MEDS ORDERED: GABAPENTIN 300 MG/CAP PO SCH (21:00)
[2023-11-25] MEDS ORDERED: MIRTAZAPINE 15 MG/TAB PO SCH (21:00)
--- NOTE | 2023-11-25 21:50 | NUR ---
PT RESTING ASKING FOR SOMETHING FOR A HEADACHE NURSE PROVIDED PRN MOTRIN. PT PROVIDED ALL HER EVENING SCHEDULED MEDICATIONS BUT REFUSED TRAZODONE SHE DID NOT STATE WHY. NURSE ENCOURAGE HER TO TAKE IT SO THAT SHE WOUND BE ABLE TO REST BUT SHE STILL REFUSED. CALL LIGHT WITHIN REACH PLAN OF CARE ONGOING.
--- NOTE | 2023-11-26 | NUR ---
PT SLEEPING NO DISTRESS NOTED ON EXAM. IV SITE CHECKED INFUSION ONGOING. CALL LIGHT WITHIN REACH. PLAN OF CARE ONGOIING.
[2023-11-26 04:00] VITALS: BP 153/73
[2023-11-26 04:41] VITALS: BP 153/73
--- NOTE | 2023-11-26 05:00 | NUR ---
PT SLEEPING NO DISTRESS NOTED BREATHING EVEN. CALL LIGHT WITHIN REACH. PLAN OF CARE ONGOING. IV INFUSION ONGOING.
[2023-11-26 06:27] LABS: BASO% 0.5 % (0-3); EOS% 3.2 % (0-8); HEMATOCRIT 40.2 % (37.0-47.0); HEMOGLOBIN 13.6 g/dl (12.0-16.0); IMMATURE GRANULOCYTES 0.1 % (0.0-5.0); LYMPH% 26.7 % (15-41); MEAN CELL VOLUME 96.9 fL CALC (80.0-100.0); MEAN CORPUSCULAR HGB 32.8 pG CALC (26.0-32.0); MEAN CORPUSCULAR HGB CONC 33.8 g/dL CAL (32.0-36.0); MONO% 7.4 % (2-13); NEUT# 7.06 thou/uL (2.00-7.15); NEUT% 62.1 % (42-76); RED BLOOD COUNT 4.15 mill/uL (4.20-5.60); RED CELL DISTRI WIDTH 13.5 % (11.5-15.5)
[2023-11-26 06:31] LABS: ALBUMIN 3.1 g/dL (3.2-5.0); AMYLASE 63 u/l (30-110); BILIRUBIN, TOTAL 0.5 mg/dL (0.02-1.3); CREATININE 0.6 mg/dL (0.5-1.0); LIPASE 156 u/l (23-300); MAGNESIUM 1.5 mg/dL (1.6-2.3); POTASSIUM 3.2 mmol/l (3.5-5.1); TOTAL PROTEIN 5.5 g/dL (6.3-8.2)
[2023-11-26 06:56] VITALS: BP 138/60
[2023-11-26] MEDS ORDERED: MAGNESIUM SULFATE HEPTAHYDRATE 50 ML IV SCH (09:00)
[2023-11-26] MEDS ORDERED: POTASSIUM CHLORIDE 20 MEQ/TAB PO SCH (09:00)
--- NOTE | 2023-11-26 10:51 | NUR ---
Rounded on pt this morning. PT is A&Ox4 able to make her need known. pt left and return form surgery. vvs, denies pain. meds was given per jul order. call light and personal item within reach. educate pt on plan of care pt stated that she understood.
== END 2023-11-26 15:17 | disposition home or self-care (01) | DRG 439 ==
LOC: ED 01:25 → ED-I 05:23 → ED 05:53 → MS2 05:54
PROVIDERS: Internal Medicine; Nurse Practitioner Family; ADMIT Internal Medicine; ATTEND Internal Medicine
DX: K85.20 Alcohol induced acute pancreatitis without necrosis or infection (principal); K82.1 Hydrops of gallbladder; K86.0 Alcohol-induced chronic pancreatitis; R74.01 Elevation of levels of liver transaminase levels; I10 Essential (primary) hypertension; F41.9 Anxiety disorder, unspecified; F32.A Depression, unspecified; F17.200 Nicotine dependence, unspecified, uncomplicated; Z92.21 Personal history of antineoplastic chemotherapy; Z85.3 Personal history of malignant neoplasm of breast; Z96.89 Presence of other specified functional implants; Z87.11 Personal history of peptic ulcer disease; Z85.038 Personal history of other malignant neoplasm of large intestine
CPT/HCPCS: G0378; J1650; J3475; Q9967